=== PATIENT | male | born 1965 | race Caucasian/White ===

== ENCOUNTER 2017-02-25 12:58 | Inpatient (IN) ==
[2017-02-25] MEDS ORDERED: NS 1,000 ML IV ONE (16:49)
[2017-02-25 17:00] LABS: MANUAL DIFF NEEDED? NO
[2017-02-25] MEDS ORDERED: VANCOMYCIN IV PER PHARMACY MISC SCH (17:00)
[2017-02-25 17:03] LABS: BASO% 0.1 % (0.0-0.8); EOS# 0.03 X1000 (0.0-0.7); EOS% 0.2 % (0.0-10.0); HEMATOCRIT 37.4 % (42.0-52.0); HEMOGLOBIN 12.6 g/dL (14.0-18.0); IMM GRAN# 0.16 X1000 (0.0-0.04); IMM GRAN% 0.9 % (0.0-0.5); LYMPH# 1.34 X1000 (1.2-3.4); LYMPH% 7.2 % (20.5-51.1); MCHC 33.7 g/dL (33-37); MCV 80.1 FL (81-99); MONO# 1.25 X1000 (0.11-0.59); MONO% 6.7 % (1.7-9.3); MPV 9.1 FL (7.4-10.4); NEUT% 84.9 % (42.2-75.2); PLT 369 X1000 (130-400); RBC 4.67 XMIL (4.7-6.1)
[2017-02-25 17:11] LABS: INR 1.14; PROTIME 12.1 Seconds (9.2-11.7)
[2017-02-25 17:16] LABS: HEMOGLOBIN A1C 6.6 % (4.8-6.0)
[2017-02-25 17:27] LABS: AGAP 13; ALKALINE PHOSPHATASE 118 U/L (32-122); BUN 12 mg/dL (8-22); CALCIUM 9.2 mg/dL (8.8-10.2); CHLORIDE 90 mmol/L (98-107); COSMO 266; GOT 13 U/L (10-34); GPT 8 U/L (10-44); POTASSIUM 3.6 mmol/L (3.5-5.1); SODIUM 132 mmol/L (136-145); TCO2 29 mmol/L (25-35); TOTAL BILIRUBIN 0.65 mg/dL (0.20-1.00); TOTAL PROTEIN 6.3 g/dL (6.3-8.3)
[2017-02-25 17:28] LABS: HDL 38 mg/dL (35-55); LDL 76 mg/dL; TRIGLYCERIDES 105 mg/dL (39-160); VLDL 21 mg/dL
[2017-02-25 17:29] LABS: MAGNESIUM 1.5 mg/dL (1.5-2.7); PREALBUMIN 10.7 mg/dL (20-40)
[2017-02-25 17:39] LABS: FREE T4 1.7 ng/dL (0.93-1.70)
[2017-02-25] MEDS: ZOSYN 3.375 GM/NS 3.375 GM/50 ML IVPB IV SCH (19:59)
[2017-02-25] MEDS: HUMALOG SUBQ SCH (20:22)
[2017-02-25] MEDS ORDERED: MAG-OX PO ONE (20:47)
[2017-02-25] MEDS ORDERED: KLOR-CON PO ONE (20:47)
[2017-02-25] MEDS ORDERED: NS 250 ML IV ONE (20:48)
[2017-02-25] MEDS ORDERED: NS 1,000 ML IV SCH (20:48)
[2017-02-25 21:47] LABS: URINE MICRO REVIEW NEEDED? NO; URINE SOURCE CLEAN CATCH
[2017-02-25 21:50] LABS: BILIRUBIN URINE NEGATIVE (NEGATIVE); BLOOD URINE SMALL (NEGATIVE); COLOR YELLOW; GLUCOSE URINE NEGATIVE (NEGATIVE); LEUKOCYTES URINE TRACE (NEGATIVE); NITRITE URINE NEGATIVE (NEGATIVE); PH URINE 6.5; PROTEIN URINE NEGATIVE (NEGATIVE); SP GRAVITY URINE 1.008; TURBIDITY URINE CLEAR (CLEAR); UROBILINOGEN URINE NORMAL (NORMAL)
[2017-02-25 21:51] LABS: UR EPITHELIAL CELLS <10 /HPF (<10); URINE BACTERIA NEGATIVE /HPF; URINE WBC <10 /HPF (<10)
[2017-02-25] MEDS ORDERED: VANCOMYCIN 1,750 MG in NS 250 ML IV ONE (22:00)
[2017-02-26] MEDS: ZOSYN 3.375 GM/NS 3.375 GM/50 ML IVPB IV SCH ×5 (00:42→22:51)
--- NOTE | 2017-02-26 04:17 | HISTORY AND PHYSICAL ---
CHIEF COMPLAINT: Lower extremity pain and ulceration. HISTORY OF PRESENT ILLNESS: Mr. Bronson is a 52-year-old male with a history of diabetes mellitus and nicotine dependence, who presents from Dr. Valle's wound clinic with bilateral lower extremity ulcerations. The patient has been having lower extremity pain and edema as well as ulcerations over the past 3 weeks that have been getting progressively worse. He does report occasional fever and chills, and he reports yellowish drainage from his extremity wounds. His wounds cover the posterior portion of his left lower extremity and are almost circumferential around the right lower extremity from just below the knee to the ankle. There is no bone exposure but there is eschar tissue and quite a foul smell coming from his legs. He has no other real complaints. No abdominal pain, nausea or vomiting. No diarrhea. No constipation. He denies any chest pain. He reports occasional shortness of breath. He came into the hospital today for direct admission, and currently labs and diagnostics have been ordered. Initial set of vital signs showed that he had a heart rate of 100 with all other vital signs normal. Dr. Valle will perform lower extremity debridement in the morning. He has asked us to admit for medical management. PAST MEDICAL HISTORY: 1. Diabetes mellitus. 2. Nicotine dependence. PAST SURGICAL HISTORY: A tibial plateau on the left. SOCIAL HISTORY: Patient smokes a pack a day. He is . He has 2 children that are grown. 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 He denies drug or alcohol use. Apparently, he did have a history of alcohol dependence but has not had a drink since November of this year. REVIEW OF SYSTEMS: Fourteen-point review of systems obtained and found to be negative with the exception of the HPI. MEDICATIONS: Currently being compiled but the patient states he only takes, I believe, Januvia and metformin. ALLERGIES: No known drug allergies. PHYSICAL EXAMINATION: VITAL SIGNS: Blood pressure is 108/71, heart rate 100, respiratory 20, O2 saturation 96% on room air. Temperature is 97.6 degrees. GENERAL: This is a chronically ill-appearing 52-year-old male, lying in hospital bed in no acute distress. NEUROLOGIC: The patient is awake, alert, and oriented. He follows commands without focal deficits. HEENT: Head is atraumatic and normocephalic. Pupils are equal, round, reactive to light. Oral mucosa is moist. Trachea is midline. There is no JVD. No carotid bruits. CHEST: Clear to auscultation. Diminished at the bases. CV: Regular and tachy. S1-S2 is noted. No apparent murmurs. GI: Soft, nondistended, nontender. Bowel sounds positive. EXTREMITIES: Both lower extremities with fairly severe venous stasis ulcerations and eschar tissue as described in the HPI. Pulses are thready and diminished bilaterally. Both legs are cool to touch with trace edema. DIAGNOSTIC DATA: Pending. ASSESSMENT AND PLAN: 1. Lower extremity ulcerations: Presumed diabetic versus venous stasis. We will go ahead and obtain blood cultures and lactic acid given his tachycardia. Start vancomycin, and we will also start Zosyn once his renal function has been ascertained. Dr. Valle is going to perform debridement on his legs tomorrow. An echocardiogram has been ordered. We are also going to order chest x-ray and multiple lab data points. 2. Tachycardia: We will go ahead and resume the patient is at least early septic. We will start IV fluids. Check blood cultures and a lactic acid; check a chest x-ray and urinalysis as well. 3. Diabetes mellitus: We are going to check a hemoglobin A1c and start pattern sugars and sliding scale insulin. 4. The patient is going to need a thorough evaluation medically. We are going to check comprehensive labs including thyroid function, coagulation studies, iron studies, complete metabolic profile, CBC, comprehensive electrolytes, EKG, chest x-ray and others. Further recommendations will be made based on lab data. 5. Nicotine dependence: Patient has been advised to quit smoking. Nicotine patch has been prescribed and we will continue daily cessation education. 6. Further recommendations to follow. Dictated by JOSEE Carolina for Lydia Montoya MD cc: JOSEE Carolina MD
[2017-02-26 06:41] LABS: HEMATOCRIT 33.1 % (42.0-52.0); HEMOGLOBIN 10.7 g/dL (14.0-18.0); MCH 26.6 PG (27-31); MCHC 32.3 g/dL (33-37); MCV 82.1 FL (81-99); RBC 4.03 XMIL (4.7-6.1)
[2017-02-26 06:56] LABS: AGAP 12; BUN 12 mg/dL (8-22); CALCIUM 8.2 mg/dL (8.8-10.2); CHLORIDE 95 mmol/L (98-107); COSMO 270; POTASSIUM 3.9 mmol/L (3.5-5.1); SODIUM 134 mmol/L (136-145); TCO2 27 mmol/L (25-35)
[2017-02-26] MEDS: HUMALOG SUBQ SCH ×4 (06:59→20:15)
--- NOTE | 2017-02-26 08:01 | Diag Imaging Result Document ---
PROCEDURE NAME: CHEST-2 VIEWS - 02/25/2017 CHEST X-RAY, 2 VIEWS: COMPARISON: None. FINDINGS: There are trace pleural effusions. Heart size is borderline enlarged. Pulmonary vascularity is normal. No infiltrates or edema. IMPRESSION: Cardiomegaly. Trace pleural effusions.
--- NOTE | 2017-02-26 09:23 | EKG Report ---
Test Performed on : 02/25/2017 4:28:45 PM Test Reason : Pre-Op Blood Pressure : / mmHG Vent. Rate : 123 BPM Atrial Rate : 123 BPM P-R Int : 122 ms QRS Dur : 086 ms QT Int : 354 ms P-R-T Axes : 086 084 089 degrees QTc Int : 506 ms Sinus tachycardia. Left atrial enlargement Borderline ECG When compared with ECG of 25-FEB-2017 16:26, (Unconfirmed) No significant change was found Confirmed by Yaquelin AGUILERA, Lam Solorzano ([id number]) on 02/26/2017 6:35:58 PM
[2017-02-26] MEDS ORDERED: LANOXIN IV ONE (09:36)
[2017-02-26] MEDS: NICODERM PATCH TD SCH (10:06)
--- NOTE | 2017-02-26 10:26 | EKG Report ---
Test Performed on : 02/26/2017 10:11:06 AM Test Reason : afib Blood Pressure : / mmHG Vent. Rate : 125 BPM Atrial Rate : 125 BPM P-R Int : 120 ms QRS Dur : 084 ms QT Int : 358 ms P-R-T Axes : 072 061 066 degrees QTc Int : 516 ms Sinus tachycardia. Nonspecific T wave abnormality Abnormal ECG When compared with ECG of 26-FEB-2017 10:10, (Unconfirmed) No significant change was found Confirmed by Yaquelin AGUILERA, Lam Solorzano ([id number]) on 02/26/2017 6:42:49 PM
[2017-02-26] MEDS ORDERED: TORADOL IV ONE (12:09)
[2017-02-26] MEDS ORDERED: NS 1,000 ML IV SCH ×2 (12:11→15:17)
--- NOTE | 2017-02-26 14:43 | ECHO REPORT ---
ORDER DATE: 02/25/2017 MEASUREMENTS: 1. Left ventricular end-diastolic diameter 5.5. 2. End-systolic diameter 5.0. 3. Posterior wall thickness 1.1. 4. Septal thickness 1.1. 5. Left atrium 4.3. 6. Aortic root 3.1 SUMMARY: 1. Adequate quality study. 2. Mild sclerosis of trileaflet aortic valve demonstrated with normal aortic valve opening evident and peak gradient across aortic valve less than 5 mmHg. There is trace aortic regurgitation. Mild thickening of anterior and posterior mitral leaflets demonstrated. There is mild mitral regurgitation. Tricuspid and pulmonic valves are without structural abnormality with mild tricuspid regurgitation and mild pulmonic regurgitation. The estimated systolic PA pressure by Doppler is 50 mmHg. The aortic root is normal size. 3. Borderline left ventricular enlargement with mild concentric left hypertrophy is demonstrated. Estimated left ejection fraction is approximately 20 to 25% in the setting of global hypokinesis. Left atrium is mildly enlarged. Right atrium and right ventricle are normal size with preserved right ventricular systolic function. 4. No pericardial effusion. 5. Appearance of inferior vena cava suggests normal central venous pressure. CONCLUSIONS: 1. Aortic valve sclerosis without stenosis, with trace aortic regurgitation. 2. Mild mitral regurgitation. 3. Mild tricuspid regurgitation with moderate pulmonary hypertension by Doppler. 4. Mild left ventricular hypertrophy with estimated left ejection fraction 20-25%. 5. Mild left atrial enlargement. cc: MD Junior Villavicencio MD
--- NOTE | 2017-02-26 14:53 | PROGRESS NOTE ---
DATE: 02/26/2017 SUBJECTIVE: The patient was admitted to the hospital yesterday evening. He has undergone medical workup, cardiac, LEAs and labs. He does have a white count but no fevers overnight. His wound dressings are in place. No questions about surgery. We have had long discussions about this. He has been on antibiotics. Low-grade tachycardia noted 1 teens to 120s. Temperature is 99.4 degrees, blood pressure 119/75, oxygen saturation 94% on room air.General: He is alert and cachectic appearing gentleman. Cardiovascular: Sinus tach. Dressings are in place and they are clean in the bilateral lower extremities. There is obvious smell of necrotic wounds here. Abdomen: Is soft, nontender. He had LEAs performed that do show evidence although these could possibly be skewed by the circumferential nature of his wounds but he has a 0.5 on the right where the wounds were the most extensive although he does have DP and PT signals. LABS: White count is 18, hematocrit 33. Creatinine 0.8, glucose 159. Albumin was low at 10.7. Troponins are stable at 0.68 and EKG does not show any acute abnormalities. Urinalysis was negative for nitrates, with only trace leukocytes. Chest x-ray, clear. ASSESSMENT AND PLAN: This is a 52-year-old male with a long-standing greater for several months of full-thickness wounds of bilateral lower extremities of unclear etiology. He does have some peripheral vascular disease suspected. We have had long discussions requiring his future for surgical therapy. Today he needs excision of these wounds to facilitate wound healing and we will ultimately make decisions on what he needs for wound coverage, likely split-thickness skin grafts. We will also begin evaluation after surgery today of his peripheral vascular disease and see if there is any reversible lesions that we can intervene upon prior to his formal wound coverage. I have discussed that this would be a prolonged course of months getting these to heal with the goal of saving his leg but there is no guarantee here and I do worry that he will progress to require amputation at least of his right lower extremity. Wounds on the left are not as severe or do not cover as much tissue but there are just as deep and will likely require at least split thickness skin grafts here as well. We will continue to follow along with you and plan for surgery today for debridement. Appreciate the Medicine Service's help with managing of this complicated patient. cc: Junior Valle MD
--- NOTE | 2017-02-26 16:07 | PROGRESS NOTE ---
DATE: 02/26/2017 SUBJECTIVE: The patient is resting in bed. He is scheduled to undergo surgery today. OBJECTIVE: Vital Signs: Temperature 99 degrees, blood pressure 119/75, heart rate 127, respirations 14, O2 saturation is 94% on room air. General: This is an elderly male, lying in bed, in no acute distress. Head: Normocephalic, atraumatic. Heart: S1, S2. Normal. Tachycardic. Lungs: Clear to auscultation bilaterally. Abdomen: Positive bowel sounds. Soft, nontender, nondistended. Extremities: Bilateral necrotic leg ulcerations. Neurologic: The patient is alert and oriented x3. LABS: White blood cell count 18, hemoglobin 10, hematocrit 33, platelets 280, 000. Sodium 134, potassium 3.4, chloride 95, CO2 27, BUN 12, creatinine 0.8, glucose 133, calcium 8.2. ASSESSMENT AND PLAN: 1. Bilateral lower extremity necrotic skin ulcerations. The patient is scheduled to undergo debridement today. We will continue on broad-spectrum antibiotic coverage. 2. Sinus tachycardia. Most likely secondary to the patient's lower extremity skin infection. Will continue with antibiotic therapy and IV fluids. 3. Cardiomyopathy. The patient has an ejection fraction of 20 to 25%. We will monitor the patient's intake and output closely. cc: Lydia Montoya MD MTDD
[2017-02-26] MEDS ORDERED: FENTANYL ONE (17:01)
[2017-02-26] MEDS ORDERED: DIPRIVAN 1% ONE (17:01)
[2017-02-26] MEDS ORDERED: ANESTHESIA PB SET 88 IN 5742 ONE (17:06)
[2017-02-26] MEDS ORDERED: XYLOCAINE-MPF 2% ONE (17:06)
[2017-02-26] MEDS ORDERED: ZOFRAN ONE (17:06)
[2017-02-26] MEDS ORDERED: LR 2,000 ML ONE (17:06)
[2017-02-26] MEDS ORDERED: LR 1,000 ML ONE (17:23)
[2017-02-26] MEDS: LR 1,000 ML IV SCH (18:44)
[2017-02-26] MEDS: DILAUDID IV PRN ×3 (18:45→22:51)
--- NOTE | 2017-02-26 19:42 | OPERATIVE NOTE ---
PROCEDURE DATE: 02/26/2017 PREOPERATIVE DIAGNOSES: 1. Bilateral lower extremity wounds, postoperative. 2. Bilateral lower extremity necrotic wounds down to the level of periosteum and including muscle and fascia. PROCEDURE PERFORMED: 1. Excisional debridement of right lower extremity wound. Total dimensions 38 x 30 cm down to the level and including periosteum of the tibia, including muscle and fascia. 2. Excisional debridement of left posterior calf wound, 23 x 13 cm down to and including muscle fascia. 3. Excisional debridement of left lateral ankle wound 5 x 4 cm down to the level of tendon. 4. Debridement of left dorsal foot wound 5 x 2 cm to the level of subcutaneous tissue. ESTIMATED BLOOD LOSS: 250 mL. SPECIMENS: 1. Necrotic tissue from bilateral lower extremity wounds for permanent section. 2. Right anterior tibialis muscle for tissue culture. INDICATIONS: A 52-year-old man who presented to my wound care clinic on Thursday with a greater than 6 month history of bilateral lower extremity wounds. He been treated with Neosporin for last several months with no real improvement. He is cachectic appearing and malnourished. He is a smoker and a diabetic. Friends were concerned over the last several weeks of the odor coming from the wounds prompting his presentation to [facility]. I recommended admission that night; however, the patient refused against medical advice stating that he had things to deal with and would need to be admitted the following day. As such, we arranged for this, a direct admission and he underwent medical workup. He was slightly tachycardic, but stable and his wounds appeared dry and very chronic appearing with dry eschar overlying. Medical workup was appropriate for debridement. We had a long discussion regarding the need for multiple future surgeries and likely split thickness skin graft and the strong possibility of quoted 50% chance of losing his right lower extremity, if not both lower extremities. OPERATIVE FINDINGS: There were large bilateral lower extremity ulcers with necrotic tissue with above dimensions. This extended in the right foot down to the level of the tendons of the foot, the periosteum of the tibia with necrosis of both the anterior tibialis and gastrocnemius muscles. There was purulence here as well. On the left side, there was a posterior-oriented ulcer that extended down to the muscle of the gastrocnemius. But this was viable at this level. There was a smaller, more lateral ankle ulcer that was more superficial and a dorsal foot ulcer that again was superficial. OPERATIVE NOTE: Risks, benefits, alternatives discussed with the patient and this included multiple operations, possibility of amputation in the future and the likelihood of skin grafts and the prolonged nature wound healing that is likely anticipated. He understood and consented. He was seen in preoperative area and bilateral lower extremities were marked he was receiving scheduled antibiotics, Vancomycin and Zosyn started yesterday. General anesthesia was induced without complication. Bilateral lower extremities prepped with Betadine and draped in usual fashion. Time-out was performed between Nursing, Surgical, Anesthesia Staff. All agreed. Using combination electrocautery and scalpel we excised the necrotic tissue of the right lower extremity down to the level of muscle fascia. In many places, the fascia was necrotic and this was excised. There were multiple muscle bellies and tendons that required resection due to necrosis and pus and this included the majority of the gastrocnemius muscle, almost the entirety of the anterior tibialis and some the other foot and flexors and extensors. There were also some tendons of the dorsal foot that were involved as well. We were able excised all the necrotic tissue back to healthy bleeding emerson muscle of the lower extremity, and there is no evidence of undrained collection extending up the leg. We then turned attention to the left lower extremity. Hemostasis was obtained and we wrapped the leg in moist laps. We then turned our attention to the left posterior calf. We excised a large ulcer here as well. This extended down to the muscle fascia. There were some focal areas of fascial involvement that was excised, but overall, the muscle was viable and contracted, did not require debridement of muscle here. Hemostasis was obtained. The left lateral ankle ulcer was excised sharply. This extended down to the tendons of the lateral ankle, and then the dorsal foot wound was excised down to subcutaneous tissue. Hemostasis was noted. Again, felt to have adequate control of all necrotic infected tissue. Vashe Kerlix and a loose AMY wraps were applied. He was transferred back to ICU for concerns of impending sepsis. We debated leaving the patient intubated; however, he has no family with him to discuss future surgical options and given that he will now require a guillotine amputation of his right lower extremity, felt important that we have this conversation with him so that he understands and consent. I feel that this is safe to do. We will monitor him in ICU. If he has worsening acidosis or sepsis, he may require intubation, but as of now, he was stable through the case, not requiring any vasopressors and is felt safe that we will extubate him. He has no family here today. We will discuss his grave condition with him when appropriate and will plan for disarticulation of the right lower extremity in guillotine fashion tomorrow with ultimate formalization to above knee amputation on the right. I suspect the left lower extremity will respond to wound VAC placement, if not skin grafts in the future, in the meantime, we will continue on antibiotics and local wound dressing changes. cc: Junior Valle MD
[2017-02-26] MEDS: VANCOMYCIN 1,450 MG in NS 250 ML IV SCH (20:50)
[2017-02-27] MEDS: DILAUDID IV PRN ×8 (02:43→23:24)
[2017-02-27] MEDS: LR 1,000 ML IV SCH ×3 (02:44→23:24)
[2017-02-27] MEDS: ZOSYN 3.375 GM/NS 3.375 GM/50 ML IVPB IV SCH ×4 (05:24→23:23)
[2017-02-27 05:51] LABS: HEMATOCRIT 35.7 % (42.0-52.0); HEMOGLOBIN 11.7 g/dL (14.0-18.0); MCH 27.1 PG (27-31); MCHC 32.8 g/dL (33-37); MCV 82.6 FL (81-99); MPV 9.5 FL (7.4-10.4); RBC 4.32 XMIL (4.7-6.1)
[2017-02-27 06:22] LABS: AGAP 19; BUN 18 mg/dL (8-22); CALCIUM 8.9 mg/dL (8.8-10.2); CHLORIDE 95 mmol/L (98-107); COSMO 266; POTASSIUM 4.7 mmol/L (3.5-5.1); SODIUM 132 mmol/L (136-145); TCO2 18 mmol/L (25-35)
[2017-02-27] MEDS: HUMALOG SUBQ SCH ×4 (06:39→20:42)
--- NOTE | 2017-02-27 08:47 | PROGRESS NOTE ---
DATE: 02/27/2017 SUBJECTIVE: He says his leg feels better this morning. No issues overnight. He says he is hungry. OBJECTIVE: Vital Signs: No fevers. Pulse has been consistently in the 120s, blood pressure 123/73 at midnight, it was 95/75 this morning, oxygen saturation 100% on room air. General: He is alert and oriented x3. Cardiovascular: Sinus tachycardia. Pulmonary: No increased work of breathing. Abdomen: Soft, nontender. Extremities: Dressings on bilateral lower extremities are in place and clean. The right toes are perfused and viable. Neurologically intact. He does have some limitation to dorsiflexion in the right foot but can plantar flex partially the left foot. Otherwise his knee flexion-extension is normal. The left leg seems to move normally. There is no cellulitis or purulence extending up to above the knee bilaterally. LABORATORY DATA: White counts up to 30,hematocrit 35 platelets 312,000. Creatinine 0.9. Glucose is 93, sodium is 132, potassium 4.7, his pre-albumin was 11 yesterday. ASSESSMENT/PLAN: This is a 52-year-old male with necrotic wounds of his bilateral lower extremities with significant purulence and necrosis of muscle tendon extending down to the level of bone in the right leg. Left leg wounds are quite extensive also but without the extent of necrosis extending into the soft tissue structures, muscle, etc. I discussed with the patient this morning that I recommended a above-knee amputation on the right given his likelihood of dysfunction of the lower limb and for definitive source control and then to facilitate wound healing. He is adamantly against this and does not want to pursue amputation at this time. Discussed risks of worsening of infection. I discussed the strong likelihood that he will have an inadequate level of function in his right leg with significant disability as far as foot drop on that right given the involvement of his anterior tibialis and other flexors and extensor muscles of the calf. Also discussed that I think the likelihood of skin graft healing in the right lower extremity with his peripheral vascular disease and exposed bone and tendon is low. He understands all this and understands that amputation is likely in the future but he does not feel mentally prepared to undergo this today. I think from a clinical standpoint he has good source control of his infection. We will change dressings at the bedside today and decide need for further debridement. In meantime, we will continue wash dressing, broad-spectrum antibiotics. Tissue cultures are pending from the time of surgery. I think that he will most benefit from a guillotine amputation through the knee on the right with formal above knee amputation later next week after antibiotics and wound VAC to the left lower extremity with possible skin grafting in the future. I have discussed this with him and he understands that this is the likely outcome but does not wish to undertake this at this time. We will keep him in ICU for observation and wound care and will follow him closely. I will engage Aimee our wound nurse to be at the bedside for dressing changes later today. cc: Junior Valle MD MTDD
[2017-02-27] MEDS: NICODERM PATCH TD SCH (09:33)
--- NOTE | 2017-02-27 11:33 | VASCULAR LAB ---
PROCEDURE NAME: Arterial Bilateral Legs - 02/25/2017 PROCEDURE: Lower extremity arterial study. DATE OF STUDY: 02/25/2017. REQUESTING PHYSICIAN: Dr. Calvin Valle. RIVETER HELPER: Lani. INDICATION: Ulcers. FINDINGS: Segmental pressures are as follows: Right brachial 92 and left 103; right proximal thigh 121 and left 131; right distal thigh 120 left and 131 right; popliteal 79 left and 106 right; dorsalis pedis 68 right and left 93; right posterior tibial 61 and left 105; right toe 56 land eft 34; right MOSES 0.66 and left 1.02; right TBI 0.54 and left 0.33. Waveform analysis: Waveforms appear to be intact, but started to be diminished significantly at the level of the right ankle. So, essentially no flow noted to the right toe. The left side essentially has pulsatile flow to the left and all the way to the toe. INTERPRETATION: Likely distal peripheral vascular disease on the right side originating probably at the level of the popliteal distally. I suspect that on the patient's TBI one the right side is falsely elevated since there is essentially no waveform noted at the level of the toe. This suggest significant peripheral vascular disease. Given this, the patient's ulcer, vascular intervention may assist with healing. I suspect there is probably insufficient flow to allow full healing of this wound by this study. cc: MD Junior Mera MD [facility]OSPITALMaci
--- NOTE | 2017-02-27 12:53 | PROGRESS NOTE ---
DATE: 02/27/2017 SUBJECTIVE: The patient is resting comfortably in bed. He states that amputation was recommended for his lower extremity; however, he states that he has not made up his mind yet regarding that. The wound culture is growing Gram-positive cocci. OBJECTIVE: Vital Signs: Temperature 98.7 degrees, blood pressure 137/69, heart rate 127, respirations 17, O2 saturation 100% on room air. General: This is an elderly male, lying in bed in no acute distress. HEENT: Head normocephalic, atraumatic. Heart: S1 and S2 normal. Tachycardic. Lungs: Clear to auscultation bilaterally. No wheezes. No rales. No rhonchi. Abdomen: Positive bowel sounds. Soft, nontender, nondistended. Extremities: The patient's lower extremities are wrapped in a clean, dry dressing. Neurologic: The patient is alert and oriented x3. LABORATORIES: White blood cell count 30, hemoglobin 11, hematocrit 35, platelets 312,000. Sodium 132, potassium 4.7, chloride 95, CO2 of 18, BUN 18, creatinine 0.9, glucose 93, magnesium 1.7. ASSESSMENT AND PLAN: 1. Bilateral lower extremity necrotic skin ulcerations with MRSA. The patient is already on vancomycin. We will consult Dr. Schmidt for further antibiotic recommendations. Further management as per the general surgeon. 2. Sinus tachycardia. We will continue to monitor the patient on telemetry, and keep the patient well hydrated and on antibiotic therapy. 3. Hyponatremia. Will continue to monitor the patient's sodium level closely. 4. Gastrointestinal prophylaxis. Will start the patient on Protonix. 5. Tobacco dependence. Will continue on the NicoDerm patch. cc: Lydia Montoya MD [facility]
--- NOTE | 2017-02-27 15:48 | CONSULTATION ---
DATE OF CONSULTATION: 02/27/2017 CONCLUSION: The patient has a severe bilateral leg infection which extends in the right leg to the bone. He has undergone excisional debridement of both legs performed by Dr. Valle. The Gram stain from the material showed gram-positive cocci. The patient's white count has increased to approximately 33,000. I think that he is getting appropriate surgery and antibiotics for his illness and the white count initially is higher because of the infection and the surgery, but with time I think it will come down pending final culture results. RECOMMENDATIONS: As mentioned above. I think the patient is on appropriate antibiotics and he has had appropriate surgical debridement of his legs. For now I would continue the current antibiotics pending culture results. DISCUSSION: The patient tells me that for the past 5 months he has had sores and wounds on his legs that have not been getting better. He initially had leg edema and then the infection developed. He got to the point that he could not walk on his legs. His lab studies show a CBC with a white count that increased today to 30,330, hemoglobin 11.7, platelet count 312,000, creatinine is 0.9, GFR is greater than 60. The patient's blood cultures thus far are negative. Culture from the patient's left leg shows gram-positive cocci. PAST MEDICAL HISTORY/REVIEW OF SYSTEMS: Eyes and Ears: He states he hears and sees okay. Neck: No stiffness. Respiratory: No cough or shortness of breath. Cardiac: No chest pain or palpitations. Gastrointestinal: No nausea or vomiting. The patient said he has not passed a stool in the past 2 days. Genitourinary: The patient denies dysuria or hematuria. Bones, joints, muscles: See present illness. Neurologic: The patient does not have any seizures he has generalized weakness. He does not have any sensory loss in his legs. The remainder of the patient's review of systems was completed and was negative. PREVIOUS HOSPITALIZATIONS AND OPERATIONS: Patient had a fracture of his left leg which required surgery. MEDICAL DISEASES: Positive for diabetes mellitus, COPD secondary to cigarette smoking and peripheral artery disease. INFECTIOUS DISEASE HISTORY: Positive for pneumonia. FAMILY HISTORY: Positive for diabetes mellitus. SOCIAL HISTORY[place] He lives alone. He smokes cigarettes. He stopped drinking alcohol in November of this year. He does not abuse drugs. He is retired from working at . PHYSICAL EXAMINATION: Vital Signs: Temperature is 98.7 degrees, pulse 129, respirations 17, blood pressure 137/69. General: This is a chronically ill and malnourished appearing, middle- aged male. He is in no acute distress at this time. Head, eyes, ears, nose, Throat: He can hear my spoken words and see near objects. No drainage noted from the nose or ears. Neck: No meningismus. Thorax: Increased AP diameter of the chest. Lungs: Clear to auscultation. Cardiovascular: Heart rate is regular. Abdomen: Soft without masses or tenderness. Extremities: Both legs have large dressings around them. The dressings are intact. Neurologic: Patient is awake. He can move his extremities but he is weak. There is no tremor. His sensation was intact to touch. His memory as regarding his medical history seemed to be intact. Thank you for the consultation. cc: Johnnie Schmidt MD
[2017-02-27] MEDS: VANCOMYCIN 1,450 MG in NS 250 ML IV SCH (15:54)
[2017-02-28] MEDS: DILAUDID IV PRN ×9 (02:31→22:11)
[2017-02-28] MEDS: ZOSYN 3.375 GM/NS 3.375 GM/50 ML IVPB IV SCH ×4 (05:00→23:31)
[2017-02-28 06:18] LABS: HEMATOCRIT 31.6 % (42.0-52.0); HEMOGLOBIN 10.4 g/dL (14.0-18.0); MCH 26.7 PG (27-31); MCHC 32.9 g/dL (33-37); MPV 9.6 FL (7.4-10.4); RBC 3.9 XMIL (4.7-6.1)
[2017-02-28] MEDS: HUMALOG SUBQ SCH ×4 (06:33→21:43)
[2017-02-28] MEDS ORDERED: MAGNESIUM SULFATE 2 GM/S.W.I. 2 GM/50 ML IVPB IV ONE (06:39)
[2017-02-28 06:42] LABS: AGAP 17; BUN 27 mg/dL (8-22); CALCIUM 8.3 mg/dL (8.8-10.2); CHLORIDE 91 mmol/L (98-107); COSMO 264; POTASSIUM 4.7 mmol/L (3.5-5.1); SODIUM 129 mmol/L (136-145); TCO2 21 mmol/L (25-35)
[2017-02-28] MEDS ORDERED: SAMSCA PO ONE (06:49)
[2017-02-28] MEDS: NICODERM PATCH TD SCH (08:38)
--- NOTE | 2017-02-28 08:46 | Diag Imaging Result Document ---
PROCEDURE NAME: CHEST-PORTABLE - 02/28/2017 PORTABLE CHEST: COMPARISON: 02/25/2017. FINDINGS: Interval development of infiltrates in the mid and lower right lung. I believe there are small pleural effusions as well. Heart is mildly prominent. The upper lungs are clear. IMPRESSION: Overall worsening with development of dense infiltrates in the mid and lower right lung.
[2017-02-28] MEDS: LASIX IV SCH ×2 (09:20→21:43)
[2017-02-28] MEDS: VANCOMYCIN 1,450 MG in NS 250 ML IV SCH (10:17)
[2017-02-28] MEDS: LOVENOX SUBQ SCH (13:07)
--- NOTE | 2017-02-28 13:07 | PROGRESS NOTE ---
DATE: 02/28/2017 SUBJECTIVE: The patient is resting comfortably in bed. He states that he has not had a bowel movement yet. He does have a slight cough this morning. OBJECTIVE: Vital Signs: Temperature 97.8 degrees, blood pressure 128/90, heart rate 122, respirations 22, O2 saturations 90% on room air. General: This is an elderly male, lying in bed, in no acute distress. Head: Normocephalic atraumatic. Heart: S1, S2. Normal. Regular rate and rhythm. Lungs: Clear to auscultation bilaterally. No wheezing. No rales. No rhonchi. Abdomen: Positive bowel sounds. Soft, nontender, nondistended. Extremities: No edema. No cyanosis. No calf tenderness. Neurologic: The patient is alert and oriented x3. No focal neurologic deficits noted. LABS: White blood cell count 19, hemoglobin 10, hematocrit 31, platelets 403,000. Sodium 129, potassium 4.7, chloride 91, CO2 21. BUN 27, creatinine 1.1, glucose 156. Magnesium 1.7. ProBNP 77815. Chest x-ray shows dense infiltrates in the mid and lower right lung with small bilateral pleural effusions. ASSESSMENT AND PLAN: 1. Pulmonary infiltrates. The patient appears to be volume overloaded. We will start the patient on Lasix. We will also continue with broad-spectrum antibiotic coverage. We will monitor the patient's I's and O's closely. The patient's IV fluid has been discontinued. 2. Bilateral lower extremity skin ulcerations with MRSA infection. Continue on vancomycin. Dr. Schmidt is following. 3. Cardiomyopathy. We will continue to monitor the patient's intake and output closely. The patient will most likely need a cardiac evaluation to further assess the etiology of his cardiomyopathy. 4. Tobacco dependence. Continue on the NicoDerm patch. 5. Diabetes mellitus type 2. Continue on sliding scale insulin. 6. Deep vein thrombosis prophylaxis. Will start the patient on Lovenox. cc: Lydia Montoya MD
[2017-02-28] MEDS: MIRALAX PO SCH (21:43)
[2017-02-28] MEDS: DULCOLAX PR SCH (21:43)
[2017-02-28] MEDS: COLACE PO SCH (21:43)
[2017-03-01] MEDS: DILAUDID IV PRN ×11 (00:08→22:41)
[2017-03-01] MEDS: VANCOMYCIN 1,450 MG in NS 250 ML IV SCH ×2 (03:50→22:42)
[2017-03-01 05:29] LABS: MANUAL DIFF NEEDED? NO
[2017-03-01 05:34] LABS: BASO% 0.4 % (0.0-0.8); EOS# 0.03 X1000 (0.0-0.7); EOS% 0.2 % (0.0-10.0); HEMOGLOBIN 11.7 g/dL (14.0-18.0); IMM GRAN# 0.23 X1000 (0.0-0.04); IMM GRAN% 1.3 % (0.0-0.5); LYMPH# 1.59 X1000 (1.2-3.4); LYMPH% 9.1 % (20.5-51.1); MCH 26.9 PG (27-31); MCHC 33.4 g/dL (33-37); MCV 80.5 FL (81-99); MONO# 1.49 X1000 (0.11-0.59); MONO% 8.5 % (1.7-9.3); MPV 9.1 FL (7.4-10.4); NEUT% 80.5 % (42.2-75.2); PLT 451 X1000 (130-400); RBC 4.35 XMIL (4.7-6.1)
[2017-03-01] MEDS: ZOSYN 3.375 GM/NS 3.375 GM/50 ML IVPB IV SCH ×3 (05:49→16:29)
[2017-03-01] MEDS: HUMALOG SUBQ SCH ×4 (06:02→23:26)
[2017-03-01 06:09] LABS: AGAP 16; BUN 24 mg/dL (8-22); CALCIUM 8.2 mg/dL (8.8-10.2); CHLORIDE 89 mmol/L (98-107); COSMO 264; POTASSIUM 3.2 mmol/L (3.5-5.1); SODIUM 130 mmol/L (136-145); TCO2 25 mmol/L (25-35)
[2017-03-01] MEDS ORDERED: MAGNESIUM SULFATE 2 GM/S.W.I. 2 GM/50 ML IVPB IV ONE (07:12)
[2017-03-01] MEDS ORDERED: KLOR-CON PO ONE (07:12)
[2017-03-01] MEDS: MIRALAX PO SCH ×2 (08:26→23:22)
[2017-03-01] MEDS: LASIX PO SCH (08:26)
[2017-03-01] MEDS: COLACE PO SCH ×2 (08:26→23:22)
[2017-03-01] MEDS: NICODERM PATCH TD SCH (08:27)
[2017-03-01] MEDS: LOVENOX SUBQ SCH (12:19)
--- NOTE | 2017-03-01 14:22 | PROGRESS NOTE ---
DATE: 03/01/2017 SUBJECTIVE: The patient has no complaints. He states that he did have a bowel movement. No acute events noted overnight. OBJECTIVE: Vital Signs: Temperature 97 degrees, blood pressure 138/85, heart rate 113, respirations 25, O2 saturation 98% on room air. General: This is an elderly male lying in bed in no acute distress. Head: Normocephalic, atraumatic. Heart: S1, S2. Normal. Tachycardic. Lungs: Clear to auscultation bilaterally. No wheezes, no rales. No rhonchi. Abdomen: Positive bowel sounds. Soft, nontender, nondistended. Extremities: No edema. No cyanosis. The patient has clean dry dressings applied to both lower extremities. LABS: White blood cell count 17, hemoglobin 11, hematocrit 35, platelets 451,000. Sodium 130, potassium 3.2, chloride 89, CO2 25, BUN 24, creatinine 0.9, glucose 63, magnesium 1.8. ASSESSMENT AND PLAN: 1. Pulmonary infiltrates. Will switch the patient to oral Lasix. Will repeat a chest x-ray tomorrow. The patient has diuresed quite well over the last 24 hours. 2. Bilateral lower extremity skin ulcerations with methicillin-resistant Staphylococcus aureus infection. Continue on vancomycin. 3. Cardiomyopathy. Aware. The patient will need to have a cardiac workup once the infection has cleared from his lower extremities. 4. Tobacco dependence. Continue on the NicoDerm patch. 5. Diabetes mellitus type 2. Continue on sliding scale insulin. 6. Deep vein thrombosis prophylaxis. Continue on Lovenox. 7. The patient is stable for transfer to the medical floor. cc: Lydia Montoya MD
[2017-03-01] MEDS: DULCOLAX PR SCH (23:22)
[2017-03-02] MEDS: ZOSYN 3.375 GM/NS 3.375 GM/50 ML IVPB IV SCH ×4 (00:22→18:03)
[2017-03-02] MEDS: DILAUDID IV PRN ×10 (01:23→22:58)
[2017-03-02 06:38] LABS: MANUAL DIFF NEEDED? NO
[2017-03-02] MEDS: HUMALOG SUBQ SCH ×4 (06:45→20:41)
[2017-03-02 07:14] LABS: BASO% 0.2 % (0.0-0.8); EOS# 0.08 X1000 (0.0-0.7); EOS% 0.5 % (0.0-10.0); HEMATOCRIT 32.4 % (42.0-52.0); HEMOGLOBIN 10.7 g/dL (14.0-18.0); IMM GRAN% 0.6 % (0.0-0.5); LYMPH# 2.01 X1000 (1.2-3.4); LYMPH% 12.3 % (20.5-51.1); MCV 81.6 FL (81-99); MPV 9.1 FL (7.4-10.4); NEUT% 75.4 % (42.2-75.2); PLT 435 X1000 (130-400); RBC 3.97 XMIL (4.7-6.1)
[2017-03-02 07:36] LABS: AGAP 17; BUN 16 mg/dL (8-22); CALCIUM 7.7 mg/dL (8.8-10.2); CHLORIDE 92 mmol/L (98-107); COSMO 266; MAGNESIUM 1.7 mg/dL (1.5-2.7); POTASSIUM 3.9 mmol/L (3.5-5.1); SODIUM 132 mmol/L (136-145); TCO2 23 mmol/L (25-35)
[2017-03-02] MEDS: MIRALAX PO SCH ×2 (08:10→20:41)
[2017-03-02] MEDS: COLACE PO SCH ×2 (08:10→20:41)
[2017-03-02] MEDS: LASIX PO SCH (08:10)
[2017-03-02] MEDS: NICODERM PATCH TD SCH (08:10)
--- NOTE | 2017-03-02 08:41 | Diag Imaging Result Document ---
PROCEDURE NAME: CHEST-PORTABLE - 03/02/2017 AP PORTABLE CHEST, 03/02/2017 AT 0500 HOURS: FINDINGS: There is cardiomegaly. There are pleural effusions bilaterally. There is a somewhat ovoid lucency present over the mid right perihilar region. This is more conspicuous than on previous studies and may represent a cavity. This was not evident on the previous 2-view chest of 02/25/2017. There is increasing alveolar opacity in the perihilar region and lower lobe on the right over the last 2 examinations. IMPRESSION: Increasing pulmonary edema and/or pneumonia particularly in the right lower lobe with possible cavity formation.
--- NOTE | 2017-03-02 11:47 | PROGRESS NOTE ---
DATE: 03/02/2017 SUBJECTIVE: Patient reports to be in severe pain after the surgeon removed the dressing from both legs. She reports pain 10/10 in both lower extremities. Denies any fever or chills. OBJECTIVE: Vital Signs: Temperature 98.1 degrees, heart rate 116, respiratory rate 18, blood pressure 127/75, O2 saturation 100% on room air. General Examination: This is a chronically ill- looking and frail, 52-year-old male, lying in bed, in no acute distress. HEENT: Head is normocephalic, atraumatic. Anicteric sclerae and pale conjunctivae. Mucous membranes moist. Neck: Supple. No JVD. No carotid bruits. No lymphadenopathy. No thyromegaly. Cardiovascular: S1, S2 heard. Tachycardic. No murmurs, gallops, or rubs. Lungs: Clear bilaterally to auscultation. No work of breathing or using accessory muscles. Abdomen: Soft, nontender to palpation. Bowel sounds present. No organomegaly. Extremities: Covered by dressing. No edema or cyanosis noted. Neurologic: Patient is alert and oriented x3. Able to move 4 extremities. Cranial nerves 2-12 grossly normal. LABORATORY DATA: White cell count 16.37, hemoglobin 10.7, hematocrit 32.4, platelets 435,000. BMP unremarkable except mild hyponatremia 132, and glucose 100. ASSESSMENT/PLAN: 1. Pulmonary edema. The patient is on Lasix 40 mg p.o. daily and the x-ray from today showed increasing pulmonary edema in the right lower lobe with possible cavity formation so at this time to have better visualization of the lung anatomy, we are going to do a CT of the chest without contrast. We will see what that exam shows. In the meantime, we will increase the dose of Lasix to 40 mg IV b.i.d. but it is important to remark that this patient is on room air. 2. Bilateral lower extremity skin ulcerations with marked infection. Patient is on vancomycin. Dr. Schmidt from Infectious Disease is following this patient. We will continue with the same management and also General surgery has been involved in his care. 3. Cardiomyopathy stable. We will get an appointment for him as an outpatient for evaluation of this condition. 4. Tobacco dependence. Patient is on nicotine and NicoDerm patch. 5. Diabetes mellitus type 2. We will continue with sliding scale and glucose is under control. 6. Deep vein thrombosis prophylaxis on Lovenox. cc: Alverto Elias MD
[2017-03-02] MEDS: NORCO-10 PO SCH ×3 (13:51→21:29)
[2017-03-02] MEDS: LOVENOX SUBQ SCH (13:51)
--- NOTE | 2017-03-02 14:18 | PROGRESS NOTE ---
DATE: 03/02/2017 SUBJECTIVE: Some pain in his leg, but otherwise no complaints. OBJECTIVE: Vitals: Temperature is 98.1, pulse 116, blood pressure 120/75, oxygen saturation 100% on room air. General: He is a chronically ill-appearing gentleman, cachectic. Cardiovascular: Some sinus tach. Abdomen: Soft, nontender, nondistended. Extremities: Left posterior calf wound is clean. There is no necrosis here. Lateral left ankle and dorsal foot wound were also clean. There is no necrotic tissue or cellulitis here. The foot is well perfused and neurologically intact. The right calf wound is extensive, but no purulence and the surrounding cellulitis improved. There is some minimal areas of necrotic-appearing tissue, but this is very minimal. He neurologically on the right foot does not have any plantar dorsiflexion of this foot. The toes well perfused and his digits are intact, but does not have good control of his foot at this point. LABS: I reviewed his labs. White count down to 16, hematocrit 32, creatinine 0.8, glucose is 111. ASSESSMENT: A 52-year-old male with long-standing wounds to bilateral legs. He has got evidence of cardiomyopathy and heart failure on his echo. He has got Staph and Proteus growing out of his wounds. The wounds are clean. He does not have adequate function of this foot given the extensive debridement. I have discussed that with the patient. He has a large wound that will take a long time to heal if it ever does. He has evidence of peripheral vascular disease with diminished MOSES and a stepoff at the level of the knee below suggesting popliteal or tibial disease. Although his flow to the knee is relatively maintained and the left is normal. PLAN: I have had long discussion with the patient. Again, I have recommended to facilitate wound healing and his recovery, and to prevent other issues in the future, an above knee amputation on the right, given the extensive nature and anticipated lack of normal function in the right foot. He is adamant against this and wants to pursue only local measures at this time. We will continue this with dressing changes daily and plan to transition to wound VAC change. I will continue to recommend amputation of his lower extremity with an above knee amputation, but suspect that his stance will remain unchanged. No need for further debridement at this time, but will continue to monitor. I will ask Aimee, our wound nurse to weight in going forward. I do suspect that he has some distal lesions possibly related to the acute infection. We will get a CT angiogram to confirm that there is not a more proximal reversible lesion to facilitate his wound healing, and I do anticipate he is going to need skin graft coverage at the minimum in the future. We will continue to follow along. He is on appropriate antibiotics. Dr. Schmidt is following. I appreciate the hospitalist service recommendations on this chronically-ill gentleman. cc: MD MOHSEN Curtis
--- NOTE | 2017-03-02 15:03 | Diag Imaging Result Document ---
PROCEDURE NAME: CT THORAX W/O CONTRAST - 03/02/2017 COMPARISON: Chest x-ray earlier. A CT dose reduction protocol was used. FINDINGS: Stable cardiomegaly. There is severe, advanced triple-vessel calcified coronary artery disease. Anemia is present. There are moderately large pleural effusions and passive atelectasis of the lung bases. Otherwise, no infiltrates in the lungs. Bony structures are intact. IMPRESSION: 1. Cardiomegaly. 2. Bilateral pleural effusions. 3. Severe coronary artery disease. [facility]
--- NOTE | 2017-03-02 15:11 | Diag Imaging Result Document ---
PROCEDURE NAME: ANGIOGRAM/AORTA W/RUNOFF - 03/02/2017 CT ANGIOGRAM RUNOFF WITH INTRAVENOUS CONTRAST: A CT dose reduction protocol was used. COMPARISON: None. FINDINGS: Axial CT images of the abdomen, pelvis and both lower extremities were obtained after administering intravenous contrast. Coronal MIP images were generated. There is moderate vascular disease of the abdominal aorta with some multifocal plaque, some ulcerated, and vascular calcification. No aneurysm. There is [id number] stenosis at the origin of the right renal artery by about 40%. Origins of the other mesenteric arteries and left renal artery are patent. On the right side, there is some disease throughout the internal iliac artery system. The external iliac artery is patent. There is moderate stenosis with significant soft plaque buildup in the common femoral artery, with about 50% stenosis. The deep femoral artery is patent. There is severe stenosis at the origin of the superficial femoral artery with about 75 % narrowing. The popliteal artery is moderately diseased, with about 50% stenosis centrally. The anterior tibial artery is occluded. The peroneal and posterior tibial arteries are patent. There is significant tissue loss with ulceration exposing the mid-distal tibia anteriorly, as well as some of the fibula. On the left side, there is mild stenosis of the common iliac artery with about 25% narrowing. There is critical stenosis at the origin of the internal iliac artery of over 90 % narrowing, and the inferior division is also nearly occluded. The external iliac artery is patent. The common, superficial and deep femoral arteries are grossly patent. The popliteal artery is moderately diseased with several areas of narrowing by about 50%. The anterior tibial artery is occluded. The posterior tibial artery is the only artery that runs off completely to the foot. IMPRESSION: 1. Rather severe vascular disease bilaterally, left greater than right. 2. Extensive tissue loss of the right lower extremity, with exposed bone of both the tibia and distal fibula, is greater than expected due to patent arteries visible. There may be a combination of micro- and macrovascular disease. [facility]
[2017-03-02] MEDS: VANCOMYCIN 1,450 MG in NS 250 ML IV SCH (16:51)
[2017-03-02] MEDS: LASIX IV SCH (20:41)
[2017-03-02] MEDS: LEVAQUIN PO SCH (20:43)
[2017-03-02] MEDS: DULCOLAX PR SCH (20:43)
--- NOTE | 2017-03-02 22:27 | PROGRESS NOTE ---
DATE: 03/02/2017 PRESENT ILLNESS: The patient has severe bilateral leg infection. He also as noted on the aortogram today has severe peripheral vascular disease as well. MEDICATIONS: The patient is receiving vancomycin and today I discontinued Zosyn and put him on Levaquin based on the culture results. PHYSICAL EXAMINATION: Vital Signs: Temperature is 98.5 degrees, pulse 115, respirations 17, blood pressure 124/76. General: This is ill appearing middle-aged male. He is in no acute distress at this time. Thorax: Patient has an increased AP diameter of the chest. Lungs: Clear to auscultation. Cardiovascular: Regular heart rate. Abdomen: Soft and nontender. Extremities: The patient has dressings on both legs. The dressings are intact. LAB AND X-RAY STUDIES: The patient's CBC showed a white count of 16,370, hemoglobin 10.7 and platelet count 435,000. Creatinine 0.8. GFR is greater than 60. Angiogram shows severe peripheral vascular disease. CT scan of the chest showed cardiomegaly, bilateral pleural effusions and severe coronary artery disease. ASSESSMENT AND PLAN: The patient has severe infection of both legs. I plan to continue with vancomycin and Levaquin. Dr. Valle has been seeing the patient for surgical treatment of his infection. COMORBIDITIES: Include severe peripheral vascular disease, diabetes mellitus and cigarette smoking. cc: Johnnie Schmidt MD
[2017-03-03] MEDS: DILAUDID IV PRN ×7 (01:32→17:20)
[2017-03-03] MEDS: HUMALOG SUBQ SCH ×3 (06:34→16:38)
[2017-03-03 07:33] LABS: AGAP 13; BUN 14 mg/dL (8-22); CALCIUM 8.1 mg/dL (8.8-10.2); CHLORIDE 92 mmol/L (98-107); COSMO 269; POTASSIUM 3.3 mmol/L (3.5-5.1); SODIUM 133 mmol/L (136-145); TCO2 28 mmol/L (25-35)
[2017-03-03] MEDS ORDERED: DILAUDID IV ONE (10:20)
[2017-03-03] MEDS: LASIX IV SCH ×2 (10:48→22:08)
[2017-03-03] MEDS: VANCOMYCIN 1,450 MG in NS 250 ML IV SCH (10:48)
[2017-03-03] MEDS: MIRALAX PO SCH ×2 (10:48→22:07)
[2017-03-03] MEDS: LEVAQUIN PO SCH (10:49)
[2017-03-03] MEDS: NORCO-10 PO SCH ×3 (10:49→16:33)
[2017-03-03] MEDS: COLACE PO SCH ×2 (10:49→23:00)
[2017-03-03] MEDS: NICODERM PATCH TD SCH (10:49)
[2017-03-03] MEDS: LOVENOX SUBQ SCH (12:07)
--- NOTE | 2017-03-03 13:23 | PROGRESS NOTE ---
DATE: 03/03/2017 SUBJECTIVE: Feels better this morning as far as pain in his legs. Aimee, the wound nurse, is here, and she is removing his dressings and plans to place a wound VAC today. OBJECTIVE: Vital Signs: No fevers overnight. Temperature is 97.5 degrees, pulse 108, blood pressure 133/80, oxygen saturation 99% on room air. General: He is alert, cachectic-appearing gentleman. Extremities: Dressings are clean and in place in bilateral lower extremities. LABS: Reviewed this morning. Creatinine 0.9. Sodium is a little low at 133, potassium 3.3. Glucose is 139. ASSESSMENT/PLAN: A 52-year-old male status post extensive debridement of bilateral lower extremity wounds. The wounds are clean now, but he has large defects on his right leg and left posterior calf. He continued discussions about formal amputation of his right lower extremity and he is adamantly against this. Plan in the meantime: We will treat with wound VAC dressings to bilateral lower extremities. Change [address] those today with Aimee Santos's help. I appreciate this. We will wait for the wounds to begin granulation and then make plans for definitive coverage, which will likely require split-thickness skin grafts. A CT angiogram showed some tibial disease bilaterally, but no proximal lesion that we could intervene upon the right lower extremity. So, we will monitor his wounds closely. He did appear to have adequate perfusion of his tissues in the right lower extremity and left lower extremity at the time of surgery. He is on appropriate antibiotics. I appreciate the hospitalist service and Dr. Schmidt' recommendations. cc: Junior Valle MD
[2017-03-03] MEDS ORDERED: BENZOIN TINCTURE TOP ONE (14:47)
[2017-03-03] MEDS ORDERED: HURRICAINE SPRAY TOP ONE (15:00)
--- NOTE | 2017-03-03 16:16 | PROGRESS NOTE ---
DATE: 03/03/2017 SUBJECTIVE: Patient reports still complaining of mild pain in the right leg, but definitely better after we started some pain medication. OBJECTIVE: Vital Signs: Temperature 97.8 degrees, heart rate 118, respiratory rate 20, blood pressure 130/73, O2 saturation 95% on room air. General: This is a chronically ill-looking and frail, 52-year-old male, lying in bed, in no acute distress. HEENT: Head is normocephalic, atraumatic. Anicteric sclerae and pale conjunctivae. Mucous membranes moist. Neck: Supple. No JVD noted. No carotid bruits. Cardiovascular: S1 and S2 heard. No murmurs, gallops, or rubs. Regular rate and rhythm. Respiratory: Clear bilaterally to auscultation. No work of breathing or using accessory muscles. Abdomen: Soft, nontender to palpation. Bowel sounds present. No organomegaly. Extremities: No clubbing, cyanosis, or edema. Peripheral pulses present in both legs. The right lower extremity is covered by wound VAC, but they put the wound VAC the leg pain was completely debrided, with exposure of bone, muscle, and tendons. Not foul-smelling. Neurological: Patient alert and oriented x3. Moves all 4 extremities. LABORATORY DATA: There are no laboratories from today. ASSESSMENT AND PLAN: 1. Bilateral lower extremity skin ulcerations with infection. Patient is on vancomycin as per Dr. Schmidt. Dr. Valle is following this patient, as well, and he performed a deep debridement, but, as he mentioned in his note, these leg wounds are not going to heal, but patient is very adamant to have [id number] amputation, which is the recommendation from Surgery. The patient has been advised clearly that those are not going to get better and, of course, because he had some tissue exposed with bones and their endings, it would be a really extremely difficult process to treat his pain. The patient acknowledged understanding, although my feeling is that he is not completely aware of what is going on. In any case, he feels frustrated about the situation and by now we have talked to them about what would be the placement that we need to look for, so he is going to talk with me tomorrow to see what is the best place that he needs to go. 2. Pulmonary edema. We have checked a CT of the chest, which showed severe pulmonary edema, so patient is on Lasix 40 mg IV b.i.d. We will continue with the same management. 3. Tobacco dependence. Patient is on nicotine patch. 4. Diabetes mellitus, type 2. We will continue with the sliding scale insulin. Glucose is under control. cc: Alverto Elias MD
--- NOTE | 2017-03-03 17:13 | PROGRESS NOTE ---
DATE: 03/03/2017 PRESENT ILLNESS: The patient has a very severe bilateral leg infection with a large amount of tissue destruction. MEDICATIONS: The patient is on a combination of vancomycin and at first Zosyn and now Levaquin instead of Zosyn. The patient has been altogether on the antibiotics for the past 6 days. PHYSICAL EXAMINATION: Vital Signs: The patient's temperature is 97.7 degrees, pulse 116, respirations 20, blood pressure 146/93. Generally: The patient looks somewhat malnourished and chronically ill. Lungs: Clear to auscultation. Cardiovascular: Heart rate is regular. Abdomen: Soft and not tender. Thorax: Patient has an increased AP diameter to the chest. Legs: The patient has bilateral VACs on his legs. LAB AND X-RAY: The patient's creatinine is 0.9. The GFR is greater than 60. There was no CBC from today. Yesterday the CBC showed a white count of 16,370, hemoglobin 10.7, and platelet count 435,000. Culture from the wound grew methicillin-resistant Staph aureus and Proteus. ASSESSMENT AND PLAN: Patient has very severe leg infections. My plan is to continue treating him with his current antibiotics. COMORBIDITIES: Include that he has severe peripheral vascular disease, diabetes mellitus and cigarette smoking. cc: Johnnie Schmidt MD
[2017-03-04] MEDS: DILAUDID IV PRN ×10 (00:10→23:19)
[2017-03-04] MEDS: NORCO-10 PO SCH ×5 (00:14→22:02)
[2017-03-04] MEDS: DULCOLAX PR SCH ×2 (00:15→20:47)
[2017-03-04] MEDS: HUMALOG SUBQ SCH ×4 (00:16→16:20)
[2017-03-04] MEDS: VANCOMYCIN 1,450 MG in NS 250 ML IV SCH ×2 (04:22→21:07)
[2017-03-04 06:25] LABS: MANUAL DIFF NEEDED? NO
[2017-03-04 06:40] LABS: BASO% 0.1 % (0.0-0.8); EOS# 0.06 X1000 (0.0-0.7); EOS% 0.3 % (0.0-10.0); HEMOGLOBIN 11.1 g/dL (14.0-18.0); IMM GRAN# 0.18 X1000 (0.0-0.04); LYMPH# 1.51 X1000 (1.2-3.4); LYMPH% 8.7 % (20.5-51.1); MCH 26.9 PG (27-31); MCHC 32.6 g/dL (33-37); MCV 82.5 FL (81-99); MONO# 1.73 X1000 (0.11-0.59); MONO% 9.9 % (1.7-9.3); MPV 8.9 FL (7.4-10.4); PLT 459 X1000 (130-400); RBC 4.12 XMIL (4.7-6.1)
[2017-03-04] MEDS: COLACE PO SCH ×2 (09:12→21:07)
[2017-03-04] MEDS: NICODERM PATCH TD SCH (09:12)
[2017-03-04] MEDS: LEVAQUIN PO SCH (09:12)
[2017-03-04] MEDS: MIRALAX PO SCH ×2 (09:12→21:08)
[2017-03-04] MEDS: LASIX IV SCH ×2 (09:12→21:08)
[2017-03-04 11:20] LABS: AGAP 19; BUN 13 mg/dL (8-22); CALCIUM 8.3 mg/dL (8.8-10.2); CHLORIDE 88 mmol/L (98-107); COSMO 266; POTASSIUM 3.5 mmol/L (3.5-5.1); SODIUM 131 mmol/L (136-145); TCO2 24 mmol/L (25-35)
--- NOTE | 2017-03-04 11:31 | PROGRESS NOTE ---
DATE: 03/04/2017 SUBJECTIVE: Feels okay. Says his strength is getting better. Wound VAC was placed yesterday. Did have some leak that required placement to wall suction. OBJECTIVE: Vital signs: Temperature is 97.4 degrees, pulse 116, blood pressure 133/78, oxygen saturation 100% on room air. General: Chronic ill-appearing, cachectic gentleman. Cardiovascular: Sinus tachycardia. Extremities: Bilateral wound VACs were in place. I will see any progression of cellulitis or necrosis and his distal feet are perfused bilaterally. LABS: I have reviewed his labs. White count remains elevated at 17; no real change here. Hematocrit 34. ASSESSMENT AND PLAN: This is a 49-year-old white male with severe necrotizing infection of the bilateral lower extremities status post debridement. He continues to refuse above-knee amputation on the right which I think is what he needs. But in the meantime, we are treating him with wound VAC therapy. If the wounds granulate, which I am skeptical on the right that will happen, we could discuss skin grafts in the future. He is on adequate antibiotics. Dr. Schmidt is following. Appreciate the medicine services help. cc: Junior Valle MD
[2017-03-04] MEDS: LOVENOX SUBQ SCH (12:58)
--- NOTE | 2017-03-04 15:33 | PROGRESS NOTE ---
DATE: 03/04/2017 PRESENT ILLNESS: The patient has a very severe bilateral leg infection and is status post debridement of the infection. It extends to bone. MEDICATIONS: The patient is on a combination of vancomycin and Levaquin. This is day 7 of treatment with antibiotics for the patient's infection. PHYSICAL EXAMINATION: Vital Signs: Temperature is 97.4 degrees, pulse 116, respirations 17, blood pressure 133/78. General: The patient looks malnourished. He is in no acute distress. Thorax: There is an increased AP diameter to the chest. Lungs: Clear to auscultation. Cardiovascular: Heart rate is regular. Legs: Both have a VAC on. There is no visible erythema. LABORATORY DATA AND X-RAY: The CBC today showed a white count of 17,400. Hemoglobin 11.1 and platelet count 459,000. Creatinine is 0.8. GFR is greater than 60. ASSESSMENT AND PLAN: The patient has very severe leg infections. My plan is to continue treating him with antibiotics. The patient's comorbidities include peripheral vascular disease, diabetes mellitus, and cigarette smoking. cc: Johnnie Schmidt MD
--- NOTE | 2017-03-04 17:42 | PROGRESS NOTE ---
DATE: 03/04/2017 SUBJECTIVE: Patient is still complaining of mild pain that is worse of course every time they change dressing, but denies any fever or chills. OBJECTIVE: Vital signs: Temperature 97.4, heart rate 116, respiratory rate 17, blood pressure 133/78, O2 saturation 100% on room air. General examination: This is a chronically ill looking and frail 52-year-old male lying in bed in no acute distress. HEENT: Head is normocephalic and atraumatic. Anicteric sclerae. Pale conjunctivae. Mucous membranes are moist. Neck: Supple. No JVD noted. No carotid bruit. No lymphadenopathy. No thyromegaly. Cardiovascular exam: S1, S2 heard. No murmurs, gallops, or rubs. Regular rate and rhythm. Respiratory exam: Clear bilaterally to auscultation. No work of breathing. No use of accessory muscles. Abdomen: Soft, nontender to palpation. Bowel sounds present. No organomegaly. Extremities: No clubbing, cyanosis, or edema, and the right lower extremity is covered with wound VAC, as well as the one. Neurological exam: Patient alert and oriented x3. Moves four extremities. LABORATORY DATA: White cell count 17.4, hemoglobin 11.1, hematocrit 34.0, platelets 459. BMP unremarkable. ASSESSMENT AND PLAN: 1. Bilateral lower extremity skin ulcerations with infection. Patient is on vancomycin by Dr. Schmidt, and patient is supposed to be on a few weeks with this medication. I guess it is eight weeks of total antibiotics. Dr. Valle from General Surgery is following this patient, and he recommends [id number] amputation for this right leg, but patient keeps refusing that. We have talked to him about placement because this patient needs to go somewhere to get his IV antibiotic treatment, so he has agreed to go to LTAC. He requested some information about the LTAC and if his insurance company is going to cover. Definitely will let Recreation Activities Coordinator know about his request. 2. Pulmonary edema. The patient is on Lasix 40 mg IV b.i.d. Will continue with same management. Patient is not requiring any oxygen. 3. Diabetes mellitus type 2. Will continue with sliding scale insulin as well. cc: Alverto Elias MD
[2017-03-05] MEDS: DILAUDID IV PRN ×5 (01:12→22:19)
[2017-03-05] MEDS: HUMALOG SUBQ SCH ×5 (01:51→20:53)
[2017-03-05 06:33] LABS: MANUAL DIFF NEEDED? NO
[2017-03-05 06:39] LABS: BASO% 0.1 % (0.0-0.8); EOS# 0.17 X1000 (0.0-0.7); EOS% 1.2 % (0.0-10.0); HEMATOCRIT 33.4 % (42.0-52.0); IMM GRAN# 0.12 X1000 (0.0-0.04); IMM GRAN% 0.9 % (0.0-0.5); LYMPH# 1.52 X1000 (1.2-3.4); LYMPH% 11.1 % (20.5-51.1); MCHC 32.9 g/dL (33-37); MCV 82.1 FL (81-99); MONO# 1.38 X1000 (0.11-0.59); MONO% 10.1 % (1.7-9.3); MPV 8.5 FL (7.4-10.4); NEUT% 76.6 % (42.2-75.2); PLT 428 X1000 (130-400); RBC 4.07 XMIL (4.7-6.1)
[2017-03-05 07:00] LABS: AGAP 11; BUN 11 mg/dL (8-22); CALCIUM 8.3 mg/dL (8.8-10.2); CHLORIDE 89 mmol/L (98-107); COSMO 260; POTASSIUM 3.2 mmol/L (3.5-5.1); SODIUM 129 mmol/L (136-145); TCO2 29 mmol/L (25-35)
[2017-03-05] MEDS: NORCO-10 PO SCH ×4 (09:08→20:43)
[2017-03-05] MEDS: LASIX IV SCH ×2 (09:08→20:44)
[2017-03-05] MEDS: NICODERM PATCH TD SCH (09:09)
[2017-03-05] MEDS: MIRALAX PO SCH ×2 (09:09→20:44)
[2017-03-05] MEDS: LEVAQUIN PO SCH (09:09)
[2017-03-05] MEDS: COLACE PO SCH ×2 (09:09→20:43)
[2017-03-05] MEDS: LOVENOX SUBQ SCH (13:15)
--- NOTE | 2017-03-05 17:24 | PROGRESS NOTE ---
DATE: 03/05/2017 SUBJECTIVE: Patient is feeling fine. Denies any pain when he is resting. No fever or chills. OBJECTIVE: Vital Signs: Temperature 97.4 degrees, heart rate 120, respiratory rate 20, blood pressure 141/86, O2 saturation 96% on room air. General Examination: This is a chronically ill- looking and frail, 52-year-old male, lying in bed, in no acute distress. HEENT: Head is normocephalic and atraumatic. Anicteric sclerae and pale conjunctivae. Mucous membranes moist. Neck: Supple. No JVD noted. No carotid bruits. No lymphadenopathy. No thyromegaly. Cardiovascular: S1, S2 heard. No murmurs, gallops, or rubs. Regular rate and rhythm. Respiratory: Clear bilaterally to auscultation. No work of breathing or using accessory muscles. Abdomen: Soft, nontender to palpation. Bowel sounds present. No organomegaly. Extremities: No clubbing, cyanosis, or edema. There is right lower extremity and left lower extremity with wound VAC. Neurological: Patient is alert and oriented x3. ASSESSMENT/PLAN: 1. Bilateral lower extremity skin ulceration with infection. Patient is being followed with Dr. Schmidt and getting vancomycin. The patient is supposed to be on a week with that medication. The patient agreed to go to LTAC. We have contacted Physical Therapy and the social welfare clerk to work to get a bed for LTAC. We will see when that happens so he can be discharged soon. 2. Pulmonary edema. Patient is on Lasix 40 mg p.o. b.i.d. 3. Diabetes mellitus. We will continue with sliding scale insulin. cc: Alverto Elias MD
[2017-03-05] MEDS: VANCOMYCIN 1,200 MG in NS 250 ML IV SCH (17:34)
--- NOTE | 2017-03-05 18:20 | PROGRESS NOTE ---
DATE: 03/05/2017 SUBJECTIVE: Feels okay. He says the pain in his leg is getting better. OBJECTIVE: Afebrile but remains tachycardic. Blood pressures are 140/87, O2 saturation 98% on room air.General: He is a cachectic ill-appearing gentleman. Bilateral wound VACs were in place. There is no cellulitis or increasing necrosis noted around the wound VAC. Integument is otherwise warm, dry. LABS: Review of his labs, white count is down to 13, hematocrit 33, platelets are 428,000. Creatinine 0.8. Sodium is a little low at 129. Glucose 126. ASSESSMENT/PLAN: 52-year-old male with severe necrotizing infections of bilateral lower extremities status post debridement. Clinically he is improving. He does have large tissue defect on his right lower extremity and left lower extremity and he has refused above-knee amputation which I have recommended. In the meantime we are treating this with wound VACs. The wounds are clean and do not need further debridement at this time and we will need to follow these long-term to see if he ever becomes a candidate for skin grafting. I have discussed the importance of nutrition to him. I have ordered Ensures and ask the nurse to bring these, that he needs drink these 4 times daily. He is very thin, ill with a pre-albumin of 11 on admission so we will need to optimize his enteral nutrition. Will continue follow along. Plan for wound VAC changes I believe today and tomorrow of the bilateral lower extremities but we are doing these 3 times weekly. He is on adequate antibiotics. cc: Junior Valle MD
[2017-03-05] MEDS: DULCOLAX PR SCH (20:44)
[2017-03-06] MEDS: DILAUDID IV PRN ×6 (01:35→22:52)
[2017-03-06 06:33] LABS: MANUAL DIFF NEEDED? NO
[2017-03-06 06:41] LABS: BASO% 0.2 % (0.0-0.8); HEMOGLOBIN 11.1 g/dL (14.0-18.0); IMM GRAN% 0.7 % (0.0-0.5); LYMPH# 1.84 X1000 (1.2-3.4); LYMPH% 12.2 % (20.5-51.1); MCH 26.9 PG (27-31); MCHC 32.6 g/dL (33-37); MCV 82.3 FL (81-99); MONO# 1.62 X1000 (0.11-0.59); MONO% 10.8 % (1.7-9.3); MPV 8.6 FL (7.4-10.4); NEUT% 74.1 % (42.2-75.2); PLT 433 X1000 (130-400); RBC 4.13 XMIL (4.7-6.1)
[2017-03-06] MEDS: HUMALOG SUBQ SCH ×4 (06:50→21:50)
[2017-03-06 06:52] LABS: AGAP 13; BUN 13 mg/dL (8-22); CALCIUM 8.2 mg/dL (8.8-10.2); CHLORIDE 90 mmol/L (98-107); COSMO 263; POTASSIUM 3.1 mmol/L (3.5-5.1); SODIUM 131 mmol/L (136-145); TCO2 28 mmol/L (25-35)
[2017-03-06] MEDS: NORCO-10 PO SCH ×4 (08:47→21:42)
[2017-03-06] MEDS: COLACE PO SCH ×2 (08:47→21:42)
[2017-03-06] MEDS: NICODERM PATCH TD SCH (08:48)
[2017-03-06] MEDS: LEVAQUIN PO SCH (08:48)
[2017-03-06] MEDS: MIRALAX PO SCH ×2 (08:48→21:43)
[2017-03-06] MEDS: LASIX IV SCH ×2 (08:48→21:42)
[2017-03-06] MEDS ORDERED: SANTYL OINT TOP ONE (09:13)
[2017-03-06] MEDS ORDERED: DILAUDID IV ONE (10:08)
[2017-03-06] MEDS: VANCOMYCIN 1,200 MG in NS 250 ML IV SCH (11:31)
[2017-03-06] MEDS ORDERED: KLOR-CON PO ONE (11:36)
[2017-03-06] MEDS: LOVENOX SUBQ SCH (12:19)
--- NOTE | 2017-03-06 12:33 | PROGRESS NOTE ---
DATE: 03/06/2017 PRESENT ILLNESS: The patient has severe bilateral leg infections and is status post extensive debridement of the infections. The infection extends to the bone on the right leg and in fact the bone is visible. MEDICATIONS: This is day 8 of treatment with vancomycin and Levaquin. PHYSICAL EXAMINATION: Vital Signs: Temperature is 97.2 degrees, pulse 120, respirations 18, pressure 147/84. General: This is a chronically ill-appearing, middle-aged male who is in no acute distress. Lungs: Clear to auscultation. Cardiovascular: Regular heart rate. Thorax: Increased AP diameter of the chest. Extremities: The patient's left leg has a large wound posteriorly. It goes deep. The right leg has extensive debridement. There is visible bone and tendons. LABORATORY AND X-RAY: [place] [address], hemoglobin 11.1, and platelet count 433,000. Creatinine 0.8. GFR is greater than 60. A prior culture from the leg shows vancomycin and Proteus. ASSESSMENT AND PLAN: Patient has severe infections bilaterally. My plan is to continue treating him with antibiotics. He is having wound changes directed by Dr. Valle and then he has the VAC placed to both legs following the wound change. COMORBIDITIES: Include peripheral vascular disease, diabetes mellitus and cigarette smoking. cc: Johnnie Schmidt MD
--- NOTE | 2017-03-06 14:26 | PROGRESS NOTE ---
DATE: 03/06/2017 SUBJECTIVE: Patient is feeling fine. No fever or chills. He reports not to good of an appetite. OBJECTIVE: Vital Signs: Temperature 97.2 degrees, heart rate 120, respiratory rate 18, blood pressure 147/74, O2 saturation 100% on room air. General Examination: This is a chronically ill- looking, frail, and malnourished, 52-year-old male, lying in bed, in no acute distress. HEENT: Head is normocephalic, atraumatic. Anicteric sclerae. Pale conjunctivae. Mucous membranes moist. Neck: Supple. No JVD noted. No carotid bruits. No lymphadenopathy. No thyromegaly. Cardiovascular: S1, S2 heard. No murmurs, gallops, or rubs. Regular rate and rhythm. Respiratory: Clear bilaterally to auscultation. No work of breathing or using accessory muscles. Abdomen: Soft. Nontender to palpation. Bowel sounds present. No organomegaly. Extremities: No clubbing, cyanosis, or edema. Right and left lower extremity with wound VAC. Neurological: Patient is alert and oriented x3. Moves 4 extremities. ASSESSMENT AND PLAN: 1. Bilateral lower extremity skin ulceration with infection. The patient has been followed by Dr. Calvin Valle from surgery and Dr. Schmidt from infectious disease. Currently he is getting vancomycin. As we mentioned before, the recommendation from surgery is a right [id number] amputation but patient refused to do that. At this time, this patient in order to continue with care and receiving IV medications and pain medication IV every time he undergoes dressing and wound VAC changes is an LTAC. The patient has agreed to go there. We are basically waiting for public health social worker to see when we can transfer this patient. 2. Pulmonary edema. The patient reports breathing better. Currently he is still on Lasix 40 mg IV b.i.d. We will continue with the same management. 3. Diabetes mellitus type 2. We will continue with sliding scale insulin. cc: Alverto Elias MD
--- NOTE | 2017-03-06 14:58 | PROGRESS NOTE ---
DATE: 03/06/2017 SUBJECTIVE: No issues overnight. He is tolerating his wound VAC change this morning well. OBJECTIVE: Vital Signs: No fevers. Heart rates persistent in the 1-teens to 120s, blood pressure 140/84, O2 saturation 100% on room air. General: He is alert and cachectic. Cardiovascular: Sinus tachycardia. Abdomen: Soft. Extremities: His right leg wound, there are some patchy areas of impending necrosis but no purulence any longer and the remaining muscle appears to be well perfused. There is exposed tendon, there is exposed tibia over the course. On the left wound it is more superficial, the muscle at the base appears healthy and the surrounding skin is okay. The lateral ankle wound is granulating as is dorsal foot wound. Wound nurse in the process of placing a wound VAC. Neurologic Exam: He has foot drop on the right. There is no dorsiflexion of the foot and very limited function of the digits and no plantar flexion. The left leg seems overall maintained and his strength at his knee on the right seems okay. DIAGNOSTIC DATA: Reviewed his labs. White count is 15, hematocrit is 34, platelets 433, glucose is 100, creatinine 0.8, sodium is low at 131. ASSESSMENT AND PLAN: A 52-year-old male with a large wounds bilaterally. He has diminished function in the right foot and I have recommended above-knee amputation but he refuses. Left foot I think will heal ultimately. Will need skin graft once some granulation tissue occurs. Wound VAC changes are going okay. Some difficulty with seal on the right but it is maintaining with wall suction. We are doing a contact layer down at the base. No need for further debridement at this time. He is on appropriate antibiotics. He has a long road ahead as far as coverage and wound healing and I suspect this will be fraught with complications in the future but he does not want amputation of his leg. He is profoundly malnourished as well and I have recommended at least 4 Ensures daily in addition to other caloric intake but he is having hard time with this. We will continue to monitor his nutrition. He will need to be nutritionally optimized prior to undergoing any graft coverage and I discussed this with the patient. Continue IV antibiotics and wound dressing changes through the weekend. Plan 3 times weekly wound VAC changes and we will make plans ultimately what he needs going home as far as these VAC changes. cc: Junior Valle MD [facility], [place]
[2017-03-06] MEDS: DULCOLAX PR SCH (21:42)
[2017-03-07] MEDS: DILAUDID IV PRN ×6 (01:21→21:21)
[2017-03-07] MEDS ORDERED: ASPIRIN PO ONE (02:24)
[2017-03-07] MEDS: VANCOMYCIN 1,200 MG in NS 250 ML IV SCH (05:39)
[2017-03-07 06:40] LABS: MANUAL DIFF NEEDED? NO
[2017-03-07] MEDS: HUMALOG SUBQ SCH ×4 (06:40→21:20)
[2017-03-07 06:47] LABS: BASO% 0.2 % (0.0-0.8); EOS# 0.35 X1000 (0.0-0.7); HEMATOCRIT 35.5 % (42.0-52.0); HEMOGLOBIN 11.5 g/dL (14.0-18.0); IMM GRAN# 0.07 X1000 (0.0-0.04); IMM GRAN% 0.4 % (0.0-0.5); MCHC 32.4 g/dL (33-37); MCV 83.3 FL (81-99); MONO# 1.47 X1000 (0.11-0.59); MONO% 8.4 % (1.7-9.3); MPV 8.5 FL (7.4-10.4); PLT 400 X1000 (130-400); RBC 4.26 XMIL (4.7-6.1)
[2017-03-07 07:12] LABS: AGAP 12; BUN 15 mg/dL (8-22); CALCIUM 8.7 mg/dL (8.8-10.2); CHLORIDE 92 mmol/L (98-107); COSMO 276; POTASSIUM 3.8 mmol/L (3.5-5.1); SODIUM 136 mmol/L (136-145); TCO2 32 mmol/L (25-35)
[2017-03-07] MEDS: MIRALAX PO SCH ×2 (08:32→21:21)
[2017-03-07] MEDS: ASPIRIN PO SCH (08:32)
[2017-03-07] MEDS: LASIX IV SCH ×2 (08:32→21:17)
[2017-03-07] MEDS: LEVAQUIN PO SCH (08:32)
[2017-03-07] MEDS: COLACE PO SCH ×2 (08:32→21:19)
[2017-03-07] MEDS: NORCO-10 PO SCH ×4 (08:33→21:17)
[2017-03-07] MEDS: NICODERM PATCH TD SCH ×2 (08:33→17:00)
[2017-03-07] MEDS: SANTYL OINT TOP SCH (08:44)
[2017-03-07] MEDS: LOVENOX SUBQ SCH (12:53)
[2017-03-07] MEDS: ISORDIL PO SCH ×2 (12:53→21:19)
[2017-03-07] MEDS: APRESOLINE PO SCH ×2 (12:53→21:19)
--- NOTE | 2017-03-07 13:09 | PROGRESS NOTE ---
DATE: 03/07/2017 SUBJECTIVE: The patient is reporting feeling fine. Denies any chest pain, any difficulty in breathing. No fever or chills. OBJECTIVE: Vital signs: Temperature 98.5, heart rate 114, respiratory 16, blood pressure 125/74, satting 98% on room air. General: This is a chronically looking malnourished and frail 52-year- old male, looking older than his stated age, lying in bed in no acute distress. HEENT: Head is normocephalic and atraumatic. Anicteric sclerae. Pale conjunctivae. Mucous membranes moist. Neck: Supple, no JVD noted, no carotid bruits, no lymphadenopathy, no thyromegaly. Cardiovascular: S1, S2 heard, no murmurs, gallops, or rubs, and regular rate and rhythm. Respiratory: Clear bilaterally to auscultation. A few rales in both bases. The patient is not using any accessory muscles or having work of breathing. Abdomen: Soft, nontender to palpation, bowel sounds present, no organomegaly. Extremities: Right and left lower extremities with wound VACs. Neurological: Patient alert and oriented x3. Wounds on both extremities. LABORATORY DATA: White cell count 17.56, hemoglobin 11.5, hematocrit 35.5, platelets 400. Troponin 0.4. Glucose 159. ASSESSMENT AND PLAN: 1. Bilateral lower extremity skin ulceration with infection. The patient is being followed by Dr. Valle for General Surgery, by Dr. Schmidt for Infectious Disease. Unfortunately, despite receiving the right antibiotics which include vancomycin, white cell count continues to get higher. He has refused many times to get right below-knee amputation. I think this condition is going to get worse and worse. The patient is completely aware of the possible outcome if he refuses amputation. At this point, will continue with antibiotics and wound care. We are waiting for an LTAC bed. 2. [id number]-[id number] myocardial infarction with acute congestive heart failure. The patient yesterday was noted to have an abnormal heart rate, and so EKG was ordered which showed non-ST- elevation myocardial infarction, and troponins returned positive. The ultrasound that was done 10 days ago shows mild left ventricular hypertrophy with an ejection fraction of 25% to 20%. I think those are may be getting worse because of this acute episode. Cardiology has been consulted, and they think that considering this low ejection fraction and the fact that he is getting nonsustained ventricular tachycardia, the prognosis is really poor on this patient. He may have a sudden any time because of an arrhythmia by itself. At this time, we are going to treat his condition conservatively, and we will update this patient about the problems. For congestive heart failure, he is receiving Lasix 40 mg IV b.i.d. Will continue with same management. 3. Diabetes mellitus type 2. Will continue with the sliding scale insulin. 4. Protein calorie malnutrition. Will continue with Ensure shakes. cc: Alverto Elias MD MTDD
[2017-03-07] MEDS: LANOXIN IV SCH ×2 (13:31→17:52)
--- NOTE | 2017-03-07 14:04 | CONSULTATION ---
DATE OF CONSULTATION: 03/07/2017 REQUESTING PHYSICIAN: Hospitalist service. INDICATION: Congestive heart failure, shortness of breath, abnormal troponins. HISTORY: Mr. Bronson is an unfortunate 52-year-old male who was admitted to the hospital on February 25 with complaints of increasing swelling and open wounds in the lower extremities. He was seen by Dr. Calvin Valle from the surgical service who diagnosed full- thickness wounds of bilateral lower extremities of unclear etiology. He suspected peripheral vascular disease. The patient underwent an aorta CTA on March 02 that shows rather severe vascular disease bilaterally, left greater than right; extensive tissue loss of the right lower extremity with exposed bone of both the tibia and distal fibula, greater than expected due to patent arteries visible. This may be a combination of microvascular disease and macrovascular disease. The patient thereafter had a chest CT the same day that showed cardiomegaly, bilateral pleural effusions, and extensive coronary artery calcification. Yesterday, March 06, the patient became tachycardic, dyspneic. They came to the bedside, evaluated him. He was tachycardic. His heart rate was in the hundreds, and telemetry revealed a 6-beat run of ventricular tachycardia nonsustained. He has had several other runs of ventricular tachycardia. one was a 22-beat run of ventricular tachycardia. His troponin level was elevated at 0.061 on February 25, then on February 26 it was 0.068, on March 07 it was 0.450 and 0.409. The patient has been given Lasix. He is breathing somewhat better. This morning, his electrolytes are more normal. Sodium is 136, potassium 3.8, BUN 15, creatinine 0.8. A 2-D echocardiogram was done on this patient on February [address] Yepez indicating aortic valve sclerosis. Ejection fraction of the left ventricle was 20% to 25%, global impairment, mild left atrial enlargement. The patient has no prior history of coronary heart disease or stroke. He has been told that he has diabetes. At the time of admission, he was not taking any medication. He has no reported history of hypertension. The patient says that he had developed the swelling of his legs since the first of the year, and subsequently, he developed wounds. He was seeing a doctor at the [facility] facility, and eventually it got so bad that he needed to be admitted for further management. He was seen by Dr. Valle at the wound center on February 24 and admitted the next day. SURGICAL HISTORY: Positive for a left knee procedure after trauma in 2002. SOCIAL HISTORY: He is . He used to work for [employer] in [place], retired about 3 years ago. He has 2 grownup children. He has been a smoker of a pack of cigarettes a day for 40- something years. The patient has lost about 30 pounds over the course of the past 4 or 5 years. PHYSICAL EXAMINATION TODAY: Vital signs: Blood pressure 125/74, pulse 114, temperature 98.5, respirations 16. General: He is a cachectic male, alert, oriented. He appears to be slightly tachypneic. Neck: Neck veins appear to be prominent at 5 cm. HEENT: Otherwise unremarkable. No cervical bruits. Chest: Reveals diminished breath sounds bilaterally. There is dullness to percussion at both bases, diminished breath sounds. I do not hear wheezes or crepitance. Cardiac: Heart sounds are tachycardic, regular. I cannot tell for sure if there is a gallop. Abdomen: Soft, no masses, no hepatomegaly, no bruits. Extremities: Covered by dressing, and he is on sort of a continuous pump. His pulses are markedly diminished in both lower extremities. Neurological: He has some weakness in the legs. Upper extremities have normal strength. Cranial nerves normal. He is alert and oriented x3. ADDITIONAL BLOOD WORK: White count 17,530, hemoglobin 9.5, hematocrit 35.5. IMAGING: His most current chest x-ray was done on the , which showed increasing pulmonary edema, pneumonia, possible cavity formation in the right lung which was not confirmed by CT scan the same day. IMPRESSION: 1. Patient has chronic congestive heart failure, systolic dysfunction, with acute exacerbation. The etiology of this is probably severe coronary heart disease. He demonstrates extensive coronary calcification on the CT scan of the chest. 2. The patient has severe obstructive peripheral arterial disease of the lower extremities with open wounds, active necrosis/infection. 3. Long-term smoker. 4. History of diabetes mellitus. 5. Non sustained ventricular tachycardia. 6. Cardiac cachexia/ malnutrition. RECOMMENDATION: At this point in time, we will suggest conservative management with low-dose digoxin, vasodilators, AMY inhibitors. The patient's prognosis is really very poor. With active infected lesions in the legs, we cannot offer any kind of diagnostic procedure. He is not a candidate for any salvage intervention since there is no acute ST infarction on him. Consideration should be given at discussing end-of-life measures, since this patient is probably not going to make it too far with the combination of pathology that he has. Thank you again for the opportunity to participate in his evaluation. Best regards. cc: Lobo Kapoor MD MTDD
[2017-03-07] MEDS: CAPOTEN PO SCH (21:18)
[2017-03-07] MEDS: DULCOLAX PR SCH (21:23)
--- NOTE | 2017-03-07 23:17 | PROGRESS NOTE ---
DATE: 03/07/2017 SUBJECTIVE: The patient has no complaints other than some occasional pains in his legs. OBJECTIVE: Vital signs: He is afebrile. Vital signs are stable. General: Alert, oriented x3. No acute distress. Extremities: both legs have wound VACs which are intact and working appropriately. LABORATORY: White blood cell count 17,000, hemoglobin 11, platelet count 400, 000. ASSESSMENT AND PLAN: This is a 52-year-old male with necrotic wounds on both lower legs status post extensive debridement. He is undergoing wound care with the dressing changes and the negative pressure dressings. He has also recently been evaluated by Dr. Kapoor today with findings of chronic congestive heart failure, systolic dysfunction with acute exacerbation and probably severe coronary artery disease, unfortunately is not a candidate for any salvage intervention at this time. cc: Izaiah Magallon MD MTD
[2017-03-08] MEDS: LANOXIN IV SCH ×2 (00:40→05:18)
[2017-03-08] MEDS: VANCOMYCIN 1,200 MG in NS 250 ML IV SCH ×2 (00:41→17:28)
[2017-03-08] MEDS: DILAUDID IV PRN ×6 (02:28→23:52)
[2017-03-08] MEDS: CAPOTEN PO SCH ×3 (05:19→20:29)
[2017-03-08 06:17] LABS: MANUAL DIFF NEEDED? NO
[2017-03-08 06:18] LABS: BASO% 0.2 % (0.0-0.8); EOS# 0.57 X1000 (0.0-0.7); EOS% 3.5 % (0.0-10.0); HEMATOCRIT 34.5 % (42.0-52.0); HEMOGLOBIN 11.5 g/dL (14.0-18.0); IMM GRAN% 0.6 % (0.0-0.5); LYMPH# 1.61 X1000 (1.2-3.4); LYMPH% 9.9 % (20.5-51.1); MCH 27.7 PG (27-31); MCHC 33.3 g/dL (33-37); MCV 83.1 FL (81-99); MONO# 1.32 X1000 (0.11-0.59); MONO% 8.1 % (1.7-9.3); MPV 8.2 FL (7.4-10.4); NEUT% 77.7 % (42.2-75.2); PLT 377 X1000 (130-400); RBC 4.15 XMIL (4.7-6.1)
[2017-03-08] MEDS: HUMALOG SUBQ SCH ×4 (06:32→21:00)
[2017-03-08 06:43] LABS: AGAP 11; BUN 12 mg/dL (8-22); CALCIUM 8.3 mg/dL (8.8-10.2); CHLORIDE 93 mmol/L (98-107); COSMO 270; POTASSIUM 3.2 mmol/L (3.5-5.1); SODIUM 135 mmol/L (136-145); TCO2 31 mmol/L (25-35)
[2017-03-08] MEDS: NORCO-10 PO SCH ×4 (09:31→20:29)
[2017-03-08] MEDS: LEVAQUIN PO SCH (09:31)
[2017-03-08] MEDS: APRESOLINE PO SCH ×3 (09:32→20:30)
[2017-03-08] MEDS: ASPIRIN PO SCH (09:32)
[2017-03-08] MEDS: ISORDIL PO SCH ×3 (09:32→20:30)
[2017-03-08] MEDS: COLACE PO SCH ×2 (09:32→20:29)
[2017-03-08] MEDS: SANTYL OINT TOP SCH (09:33)
[2017-03-08] MEDS: MIRALAX PO SCH ×2 (09:33→20:32)
[2017-03-08] MEDS: LASIX IV SCH ×2 (09:33→20:30)
[2017-03-08] MEDS: LOVENOX SUBQ SCH (11:52)
--- NOTE | 2017-03-08 12:15 | PROGRESS NOTE ---
DATE: 03/08/2017 SUBJECTIVE: Patient reports pain is controlling both legs. Denies any fever, chills, any sensation of palpitation. No chest pain. OBJECTIVE: Vital Signs: Temperature 98.1 degrees, heart rate 123, respiratory rate 22, blood pressure 138/91, O2 saturation 99% on room air. General Examination: This is a chronically ill- looking, frail, and malnourished 52-year-old male, looking older than his age, lying in bed, in no acute distress. HEENT: Head is normocephalic, atraumatic. Anicteric sclerae. Pale conjunctivae. Mucous membranes moist. Neck: Supple. No JVD noted. No carotid bruits. No lymphadenopathy. No thyromegaly. Cardiovascular: S1 and S2 heard. Tachycardic. No murmurs, gallops, or rubs. Regular rate and rhythm. Respiratory: There are a few rales in both bases but patient is not using any accessory muscles or having work of breathing. Abdomen : Soft. Nontender to palpation. Bowel sounds present. No organomegaly. Extremities: Both lower extremities with wound VAC in place. Neurological: Patient alert and oriented x3. Able to move 4 extremities. Cranial nerves 2 through 12 grossly normal. LABORATORY DATA: White cell count 16.3, hemoglobin 11.5, hematocrit 34.5, platelets 377,000. BMP shows potassium 3.2. ASSESSMENT AND PLAN: 1. Bilateral lower extremity skin ulcerations with infection. Patient continues to receive antibiotics, in this case it is vancomycin, for this infection. As we mentioned before, the white cell count is still high and I guess it is because despite recommendations from general surgery he refused to have a right zxsoy-wnw-xxsg amputation. At this point , we are going to continue with wound care and he is waiting for a bed in an LTAC. 2. Usq-TM-vmwrxie elevation myocardial infarction with acute congestive heart failure. We had a long conversation about the situation. Patient was informed in depth about his current heart disease. Patient had a pbv-MT-yokoksr elevation myocardial infarction and the ejection fraction now is 20 to 25%. On the telemetry we noted yesterday nonsustained V-tach, abnormal heart rhythm noted. Cardiology is following this patient. We have informed this patient that with this low ejection fraction fatal arrhythmias can happen anytime and that can cause cardiac arrest at any time. The fact that we are seeing some recorded on telemetry that can happen at any time. Patient is not a candidate for any defibrillator because he has an infection that is going on. The patient refused to have an amputation which will be the ultimate solution for this infection. In any case, he was made aware of that and we were talking about code status and patient reports that he is going to think about it. At this time, we are going to continue with conservative treatment. 3. Diabetes mellitus type 2. We will continue with sliding scale insulin. 4. Protein-calorie malnutrition. We will continue with Ensure shakes. Overall the prognosis of this patient is very poor, extremely poor. Patient with a chronic infection that he refused to have an amputation. White cell count is high despite getting on the right medication, in this case vancomycin. On top of that, a non-STEMI has happened and that can produce a fatal arrhythmia at any time but patient prefers still to be on full code and he will think about changing the status. He will probably give us an answer tomorrow or the day after. cc: Alverto Elias MD MTDD
[2017-03-08] MEDS: NICODERM PATCH TD SCH (16:00)
[2017-03-08] MEDS: DULCOLAX PR SCH (20:32)
[2017-03-09] MEDS: DILAUDID IV PRN ×7 (02:25→22:10)
[2017-03-09] MEDS: HUMALOG SUBQ SCH ×5 (03:06→22:12)
[2017-03-09] MEDS: CAPOTEN PO SCH ×3 (05:34→22:15)
[2017-03-09 06:30] LABS: AGAP 10; BUN 11 mg/dL (8-22); CALCIUM 8.6 mg/dL (8.8-10.2); CHLORIDE 93 mmol/L (98-107); COSMO 266; POTASSIUM 3.4 mmol/L (3.5-5.1); SODIUM 133 mmol/L (136-145); TCO2 30 mmol/L (25-35)
--- NOTE | 2017-03-09 06:32 | EKG Report ---
Test Performed on : 03/07/2017 09:34:53 AM Test Reason : VT/CAD/pulmonary edema Blood Pressure : / mmHG Vent. Rate : 120 BPM Atrial Rate : 120 BPM P-R Int : 120 ms QRS Dur : 088 ms QT Int : 348 ms P-R-T Axes : 055 040 099 degrees QTc Int : 491 ms Sinus tachycardia. Possible Left atrial enlargement Anterior infarct , age undetermined Abnormal ECG When compared with ECG of 26-FEB-2017 10:11, No significant change was found Confirmed by Yaquelin AGUILERA, Lam Solorzano ([id number]) on 03/09/2017 8:08:22 AM
[2017-03-09] MEDS: NORCO-10 PO SCH ×4 (09:11→23:02)
[2017-03-09] MEDS: APRESOLINE PO SCH ×3 (09:11→18:06)
[2017-03-09] MEDS: ASPIRIN PO SCH (09:11)
[2017-03-09] MEDS: LEVAQUIN PO SCH (09:11)
[2017-03-09] MEDS: COLACE PO SCH ×2 (09:11→22:16)
[2017-03-09] MEDS: LASIX IV SCH ×2 (09:12→22:00)
[2017-03-09] MEDS: ISORDIL PO SCH ×3 (09:12→18:06)
[2017-03-09] MEDS: MIRALAX PO SCH ×2 (09:12→22:16)
[2017-03-09 10:23] LABS: MANUAL DIFF NEEDED? NO
[2017-03-09 10:24] LABS: BASO% 0.3 % (0.0-0.8); EOS# 0.79 X1000 (0.0-0.7); EOS% 4.1 % (0.0-10.0); HEMATOCRIT 38.8 % (42.0-52.0); HEMOGLOBIN 12.7 g/dL (14.0-18.0); IMM GRAN# 0.08 X1000 (0.0-0.04); IMM GRAN% 0.4 % (0.0-0.5); LYMPH# 1.11 X1000 (1.2-3.4); LYMPH% 5.7 % (20.5-51.1); MCH 27.3 PG (27-31); MCHC 32.7 g/dL (33-37); MCV 83.3 FL (81-99); MONO# 1.08 X1000 (0.11-0.59); MONO% 5.6 % (1.7-9.3); MPV 8.3 FL (7.4-10.4); NEUT% 83.9 % (42.2-75.2); PLT 443 X1000 (130-400); RBC 4.66 XMIL (4.7-6.1)
[2017-03-09] MEDS: VANCOMYCIN 1,200 MG in NS 250 ML IV SCH (11:15)
--- NOTE | 2017-03-09 11:45 | PROGRESS NOTE ---
DATE: 03/09/2017 SUBJECTIVE: Patient is feeling fine. Denies any chest pain or shortness of breath. OBJECTIVE: Vital Signs: Temperature 97.6 degrees, heart rate 126, respiratory rate 18, blood pressure 150/89, O2 saturation 98% on room air. General Examination: This is a chronically ill- looking, frail, and malnourished, 52-year-old, male, lying in bed, in no acute distress. Looking older than his age. HEENT: Head is normocephalic and atraumatic. Anicteric sclerae and pale conjunctivae. Mucous membranes moist. Neck: Supple. No JVD noted. No carotid bruits. No lymphadenopathy. No thyromegaly. Cardiovascular Examination: S1 and S2 heard. Tachycardic. No murmurs, gallops, or rubs. Regular rate and rhythm. Respiratory Examination: A few rales still present in both bases. The patient is not using any accessory muscles or having work of breathing. Abdomen: Soft, nontender to palpation. Nondistended. Bowel sounds present. No organomegaly. Extremities: Both lower extremities with wound VAC in place. Neurological Examination: Patient is alert and oriented x3. Moves 4 extremities. Laboratory Data: White cell count 19.33, hemoglobin 12.7, hematocrit 38.8, platelets 443,000. The BMP is completely unremarkable. ASSESSMENT AND PLAN: 1. Bilateral lower extremity skin ulcerations with infection. Patient continued receiving antibiotics. In this case, he is receiving vancomycin and levofloxacin. Dr. Schmidt is following this patient. Unfortunately, the white cell count is still high. He has been recommended many times by a general surgeon that this infection that he had with bone exposure, with muscle exposure is not going to heal because he is malnourished but he refused to have amputation. As we mentioned before, this patient is not improving. We are waiting for a long-term acute care bed to continue treatment. Patient has not been realistic about his current situation. He thinks that both legs are going to heal. In any case, we will see. We are awaiting for a long-term acute care bed. The patient may need to be on intravenous antibiotics for a while. We will see if for home, Dr. Schmidt plans to keep this patient on antibiotics. 2. Non-ST segment elevation myocardial infarction/acute congestive heart failure. Dr. Kapoor from cardiology is following this patient. Basically, his ejection fraction was 20% and considering that low ejection fraction, he probably needs a defibrillator but because of this chronic condition, that is not even well treated because this patient refused having amputation, he is not a candidate for any defibrillator. We have noticed that in the telemetry, there was some nonsustained ventricular tachycardia noted so the patient was informed that considering this reason, myocardial infarction and this is very low ejection fraction, he is a high risk of developing fatal arrhythmia that can cause cardiac arrest. Palliative care has been consulted and finally the decision was made to change the code status to es-xdj-[id number] level 1. At this point, we will continue with conservative treatment according to cardiology. 3. Diabetes mellitus type 2. We will continue with the sliding scale insulin. 4. Protein-calorie malnutrition. We will continue with Ensure shakes. Overall, this patient is stable but considering all his multiple medical conditions, the prognosis is very poor. Basically, we are waiting for a long-term acute care bed. We are going to release him when we get a bed. cc: Alverto Elias MD MTDD
[2017-03-09] MEDS: LOVENOX SUBQ SCH (13:11)
--- NOTE | 2017-03-09 17:08 | PROGRESS NOTE ---
DATE: 03/09/2017 PRESENT ILLNESS: The patient has severe bilateral leg infections and is status post extensive debridement of the infections. The bone is involved in the right leg infection. MEDICATIONS: This is day 11 of treatment with vancomycin and Levaquin. PHYSICAL EXAMINATION: Vital Signs: Temperature is 97.6 degrees, pulse 126, respirations 18, pressure 150/89. General: This is a chronically ill-appearing, middle-aged male. He is in no acute distress. Lungs: Clear to auscultation. Cardiovascular: Regular heart rate. Abdomen: Soft and nontender. Extremities: Legs, both of them have the VAC on. The patient refused to have the dressings changed today. LABORATORY AND X-RAY: The white count is up to 19,330, hemoglobin 12.7, platelet count 443,000. Creatinine is 0.6. GFR is greater than 60. ASSESSMENT AND PLAN: 1. Patient has severe leg infections. His white count is increasing. What I plan to do is discontinue Levaquin and start the patient on cefepime to expand the gram-negative haile coverage. The vancomycin will be continued. 2. Comorbidities include peripheral vascular disease, diabetes mellitus, and cigarette smoking. cc: Johnnie Schmidt MD
--- NOTE | 2017-03-09 17:31 | PALLIATIVE CARE CONSULTATION ---
DATE: 03/09/2017 REQUESTING PHYSICIAN: Alverto Elias MD REASON FOR CONSULTATION: Goals of care. HISTORY OF PRESENT ILLNESS: This is a 52-year-old, cachectic male, who was admitted on 02/25/2017 after presenting to the emergency department with complaints of bilateral lower extremity ulcerations and edema, that have became progressively worse over the last 3 weeks. Prior to this admission he was being [facility]. Since admission, Dr. Valle has performed lower extremity debridement and Dr. Schmidt is on board and managing the treatment of the wound infections. Despite the use of multiple antibiotics, Mr. Bronson's white blood cell count remains high. Amputation has been discussed; however, the patient has refused. Also since admission, Mr. Bronson has experienced a non ST-segment elevation myocardial infarction. Cardiology is following the patient. Cardiac workup has revealed severe coronary heart disease. It is also of note that his ejection fraction is 20-25%. Telemetry has also revealed some nonsustained ventricular tachycardia. Unfortunately, Mr. Bronson is not a candidate for any salvage intervention at this time due to his active infection. Currently, Mr. Bronson is sitting up in the hospital bed. He denies pain, shortness of breath, anxiety, or depression. He does not have any family present for the consultation. He states that he has a support system consisting of an aunt and his son; however, I am not sure how closely there are involved with his care. The palliative care team has been consulted to assist with goals of care. REVIEW OF SYSTEMS: Twelve point review of system has been conducted and otherwise negative except those mentioned in the history of present illness. PAST MEDICAL HISTORY: 1. Diabetes mellitus. 2. Congestive heart failure. 3. Obstructive peripheral artery disease. 4. Nicotine dependence. SOCIAL HISTORY: Alcohol and drug have been denied. He is a current smoker. He is . He has 2 grown children. PHYSICAL EXAMINATION: General: This is a cachectic 52-year-old male , who does not appear to be in any acute distress. HEENT: Atraumatic, normocephalic. Neck: Trachea is midline. Cardiovascular: Increased rate. Regular rhythm. Pulmonary: Lung sounds are diminished. Clear. Respirations are nonlabored. Abdomen: Soft. Bowel sounds are active. Extremities: Bilateral lower extremities have wound vac's in place. All pulses are palpable. Neurological: Alert and oriented to person, place, and time. IMPRESSION: This is a 52-year-old, male, with a past medical history as listed above in the history of present illness. The palliative care team was consulted to assist with goals of care. Mr. Bronson states that he understands the severity of his infection and now his heart disease. However, I am not sure if he truly understands. He states that he understands that he has been told that he has had a myocardial infarction; however, he states since he did not feel any pain during that time, that he believes that it may not have happened. He states that he has been told that he had an infection, but since he has not been shown the numbers he is not sure if he believes he has an infection. We discussed his advanced directives. He states that he does not want CPR, but he would want defibrillation, medications to stimulate or increase his blood pressure, and mechanical ventilation if needed. A DNR level 2 order will be placed, stating that he does not want CPR. I believe at this time currently he is waiting for an LTAC bed. He does not have any questions regarding his discharge plan. As previously mentioned, Mr. Bronson does not have any acute complaints at this time. It appears that his palliative performance scale is 50 %. He is now a DNR Level 2. The palliative care team will continue to follow. Thank you for this consultation. Dictated by JOSEE Conway for Rj Petty MD cc: JOSEE Conway MD [facility]
--- NOTE | 2017-03-09 17:41 | PROGRESS NOTE ---
DATE: 03/09/2017 SUBJECTIVE: Feels okay, refused wound VAC change today. Wants to do it tomorrow. OBJECTIVE: Vital signs: No fevers. Temperature is 97.6 degrees, pulse 126, blood pressure 150/89, O2 saturation 98% on nasal cannula. General: He is cachectic appearing. Cardiovascular: Remains tachycardic. No increased work of breathing. No cough. Extremities: His bilateral lower extremity wound VAC and dressing changes are in place with good suction. There is no cellulitis of the surrounding skin. LABORATORY: His white count back up to 19, hematocrit 35. Creatinine is 0.6, glucose is 101, prealbumin on the was 7.3. Pro-brain natriuretic peptide on 03/07 was 24,483. ASSESSMENT/PLAN: A 52-year-old male status post extensive debridement of bilateral necrotic wounds of the lower extremity. He has wound VAC in place. Persistent white count of unclear etiology. We will check his dressings tomorrow to ensure he does not have any undrained collections, although the last time we saw these end of the last week they looked okay and we will ensure that he does not need any further debridement. He continues to refuse above-knee amputation. I anticipate that he will need wound VAC therapy at least for 1 month prior to pursuing any skin grafts and only then, if there are no signs of ongoing infection, progression of necrosis and his nutrition is optimized and he is not smoking and his blood sugars are well controlled, we could consider wound grafts at that time. Otherwise, we will need to wait until that is the case. Dr. Schmidt is following and is making changes to antibiotics. We will continue to follow along. cc: Junior Valle MD
[2017-03-09] MEDS: MAXIPIME 2 GM/NS 2 GM/100 ML IVPB IV SCH (18:06)
[2017-03-09] MEDS: NICODERM PATCH TD SCH (18:06)
[2017-03-09] MEDS: DULCOLAX PR SCH (22:16)
[2017-03-10] MEDS: DILAUDID IV PRN ×8 (00:11→22:41)
[2017-03-10] MEDS: MAXIPIME 2 GM/NS 2 GM/100 ML IVPB IV SCH ×2 (05:02→18:16)
[2017-03-10] MEDS: VANCOMYCIN 1,200 MG in NS 250 ML IV SCH (06:00)
[2017-03-10 06:21] LABS: MANUAL DIFF NEEDED? NO
[2017-03-10] MEDS: HUMALOG SUBQ SCH ×4 (06:23→20:57)
[2017-03-10 06:29] LABS: BASO% 0.2 % (0.0-0.8); EOS# 0.61 X1000 (0.0-0.7); EOS% 3.5 % (0.0-10.0); HEMATOCRIT 36.6 % (42.0-52.0); HEMOGLOBIN 11.9 g/dL (14.0-18.0); IMM GRAN% 0.6 % (0.0-0.5); LYMPH% 8.5 % (20.5-51.1); MCHC 32.5 g/dL (33-37); MONO# 1.44 X1000 (0.11-0.59); MONO% 8.2 % (1.7-9.3); MPV 8.3 FL (7.4-10.4); PLT 418 X1000 (130-400); RBC 4.41 XMIL (4.7-6.1)
[2017-03-10] MEDS: CAPOTEN PO SCH ×3 (07:39→20:56)
[2017-03-10 08:44] LABS: AGAP 14; ALBUMIN 2.6 g/dL (3.5-5.0); ALKALINE PHOSPHATASE 127 U/L (32-122); BUN 15 mg/dL (8-22); CALCIUM 8.3 mg/dL (8.8-10.2); CHLORIDE 92 mmol/L (98-107); COSMO 273; GOT 17 U/L (10-34); GPT 14 U/L (10-44); POTASSIUM 3.5 mmol/L (3.5-5.1); SODIUM 136 mmol/L (136-145); TCO2 30 mmol/L (25-35); TOTAL BILIRUBIN 0.47 mg/dL (0.20-1.00)
[2017-03-10] MEDS: ISORDIL PO SCH ×4 (09:03→18:16)
[2017-03-10] MEDS: NORCO-10 PO SCH ×4 (09:03→20:55)
[2017-03-10] MEDS: LASIX IV SCH ×2 (09:03→20:56)
[2017-03-10] MEDS: APRESOLINE PO SCH ×4 (09:03→18:16)
[2017-03-10] MEDS: ASPIRIN PO SCH (09:03)
[2017-03-10] MEDS: COLACE PO SCH ×2 (09:04→20:55)
[2017-03-10] MEDS: SANTYL OINT TOP SCH ×2 (09:07)
[2017-03-10] MEDS: MIRALAX PO SCH ×2 (09:07→20:56)
[2017-03-10] MEDS ORDERED: ATIVAN ONE (09:09)
[2017-03-10] MEDS ORDERED: ATIVAN IV ONE (09:13)
--- NOTE | 2017-03-10 09:56 | PROGRESS NOTE ---
DATE: 03/10/2017 SUBJECTIVE: He is to undergo his dressing changes upon evaluation this morning. He is having a lot of discomfort with these, but not much pain once the dressings were in place. He did refuse dressing change yesterday. OBJECTIVE: Vital Signs: Temp is 98 degrees, no fevers overnight. Pulse 100, blood pressure 134/50, oxygen saturation 98% on room air. General: He is alert, in no acute distress. Extremities: Bilateral legs: On the right, the wounds are granulating and they are healthy, beefy red. There is some areas of some fibrinous necrotic tissue that is loosely adherent, but no evidence of ongoing purulence. The tibia is exposed widely. There is some dark discoloration of this anteriorly. On the left, the wounds were cleaning up nicely. There is no need for debridement. There is healthy well perfused muscle. Posterior calf, left lateral ankle and dorsal foot wound is almost healed. LABS: White count down to 17, hematocrit 36, creatinine 0.7, glucose is 96. His albumin is 2.6. ASSESSMENT AND PLAN: This is a 52-year-old male with severe wound infections of bilateral legs status post extensive debridement. VAC changes are going okay. He is on appropriate antibiotics. Clinically he is improving. He has stable foot drop of his right foot. Left wounds are granulating well and are clean. I do not see any need for further debridement surgically, but will begin Santyl therapy with his VAC changes three times weekly. Suspect that the exposed tibia is going be the main limiting factor in this wound healing going forward. He remains malnourished despite encouraging him to drink Ensure. He has been made xp-vee-hxomnvxmarn level 2. We will continue to follow along. cc: Junior Valle MD
[2017-03-10] MEDS: LOVENOX SUBQ SCH (12:11)
--- NOTE | 2017-03-10 14:51 | PALLIATIVE CARE PROGRESS NOTE ---
DATE: 03/10/2017 SUBJECTIVE: Mr. Bronson is resting on my arrival. He states that he did not sleep well last night. He has no acute complaints. OBJECTIVE: General: This is a 52-year-old, cachectic male who does not appear to be in any acute distress. HEENT: Atraumatic, normocephalic. Cardiovascular: Regular rate and rhythm. Pulmonary: Lung sounds are diminished. Clear respirations are nonlabored. Abdomen: Soft. Extremities: Wound VAC in place. All pulses are palpable. Muscle wasting noted. Neurologic: Awake, alert, oriented to person, place and time. ASSESSMENT/PLAN: I met with Mr. Bronson to follow up from yesterday's consultation. He has no acute complaints at this time. He does not have any questions regarding his code status and the change that was made yesterday. I do believe we are still waiting to hear back from LTAC to determine discharge plans. The palliative care team will continue to follow. Dictated by JOSEE Conway for Rj Petty MD cc: JOSEE Conway MD [facility]
--- NOTE | 2017-03-10 15:36 | PROGRESS NOTE ---
DATE: 03/10/2017 SUBJECTIVE: The patient states that he is feeling fine. I had a really large conversation with this patient about his treatment. I told him that probably he will need an amputation and he is still refusing this. For now, this patient has a wound VAC machine on both his lower extremities. Actually this patient gets angry if we had talked about the prognosis of his leg. OBJECTIVE: Vital Signs: Temperature 97.7 degrees, pulse 89, respiratory rate 16, blood pressure 130/69, oxygen saturation 98 on room air. HEENT: Head normocephalic. No trauma. PERRLA. Neck: Supple. No JVD. No masses. Central trachea. Cardiovascular: RRR. S3 noted. No murmurs. Abdomen: Soft, nontender, nondistended. No hepatosplenomegaly. Extremities: Both lower extremities with wound VAC in place. Neurological: This patient is alert and oriented x3. He moves all 4 extremities. LABORATORY: WBC 17.6, hemoglobin 11.9, hematocrit 36.6, platelets 418,000. Sodium 136, potassium 3.5, chloride 92, bicarbonate 30, BUN 15, creatinine 0.7, glucose 96, calcium 8.3. ASSESSMENT AND PLAN: 1. Bilateral lower extremity skin ulceration with infection. We will continue with the same management. Dr. Schmidt from infectious disease department is following this patient. His white blood cells are still high. There is one exposure, muscle exposure, and probably this is not going to get better because of this patient's protein calorie malnutrition. Surgery department offered an amputation but he refused these. 2. Fgh-OK-jfeuyqtbt myocardial infarction in a patient with known congestive heart failure with an ejection fraction around 20 to 25%. This patient is on telemetry. Probably this patient will need in the near future a defibrillator. Cardiology department is following this patient. At this point, we are going to continue with conservative treatment. 3. Type 2 diabetes. Continue with the same management. 4. Protein calorie malnutrition. Continue with his diet plus Ensure. 5. Do Not Resuscitate level 2. I read the previous note from Dr. Katz that said that palliative care has been consulted and finally the decision was made to change the code status to do not resuscitate level 1. I will talk to the palliative care team to corroborate this information and probably I will talk to the patient as well. Apparently this patient does not want CPR but he is okay with defibrillation, medications to stimulate or increase his blood pressure, and mechanical ventilation if needed. cc: Jesús Nichols MD
[2017-03-10] MEDS: NICODERM PATCH TD SCH (18:16)
[2017-03-10] MEDS: DULCOLAX PR SCH (20:57)
[2017-03-11] MEDS: VANCOMYCIN 1,200 MG in NS 250 ML IV SCH ×2
[2017-03-11] MEDS: NORCO-10 PO SCH ×5 (03:00→20:57)
[2017-03-11] MEDS: DILAUDID IV PRN ×10 (03:23→23:59)
[2017-03-11] MEDS: CAPOTEN PO SCH ×3 (04:18→20:58)
[2017-03-11] MEDS: MAXIPIME 2 GM/NS 2 GM/100 ML IVPB IV SCH ×2 (04:18→16:55)
[2017-03-11 07:25] LABS: MANUAL DIFF NEEDED? NO
[2017-03-11 07:40] LABS: BASO% 0.3 % (0.0-0.8); EOS# 0.77 X1000 (0.0-0.7); EOS% 4.6 % (0.0-10.0); HEMATOCRIT 34.4 % (42.0-52.0); IMM GRAN# 0.07 X1000 (0.0-0.04); IMM GRAN% 0.4 % (0.0-0.5); LYMPH# 1.82 X1000 (1.2-3.4); LYMPH% 10.9 % (20.5-51.1); MCH 26.8 PG (27-31); MCV 83.7 FL (81-99); MONO# 1.59 X1000 (0.11-0.59); MONO% 9.5 % (1.7-9.3); MPV 8.4 FL (7.4-10.4); NEUT% 74.3 % (42.2-75.2); PLT 392 X1000 (130-400); RBC 4.11 XMIL (4.7-6.1)
[2017-03-11 08:03] LABS: AGAP 11; BUN 15 mg/dL (8-22); CALCIUM 8.5 mg/dL (8.8-10.2); CHLORIDE 95 mmol/L (98-107); COSMO 273; POTASSIUM 3.1 mmol/L (3.5-5.1); SODIUM 136 mmol/L (136-145); TCO2 30 mmol/L (25-35)
[2017-03-11] MEDS: MIRALAX PO SCH ×2 (08:47→20:58)
[2017-03-11] MEDS: APRESOLINE PO SCH ×3 (08:48→16:50)
[2017-03-11] MEDS: ASPIRIN PO SCH (08:48)
[2017-03-11] MEDS: SANTYL OINT TOP SCH (08:48)
[2017-03-11] MEDS: COLACE PO SCH ×2 (08:48→20:59)
[2017-03-11] MEDS: LASIX IV SCH ×2 (08:49→20:59)
[2017-03-11] MEDS: ISORDIL PO SCH ×3 (08:49→16:50)
[2017-03-11] MEDS: HUMALOG SUBQ SCH ×4 (08:52→22:00)
--- NOTE | 2017-03-11 12:36 | PROGRESS NOTE ---
DATE: 03/11/2017 SUBJECTIVE: No pain. VAC changes going well. Feels his strength is getting better. OBJECTIVE: Vital Signs: Temperature is 98 degrees, pulse 126, blood pressure 123/80, and oxygen saturation 97% on room air. General: Alert. No acute distress. Extremities: Bilateral lower extremity wound VACs are in place, with no increasing cellulitis around these. LABORATORIES: Reviewed. White count is down to 16. Hematocrit 34. Creatinine is 0.7. Glucose 102. ASSESSMENT/PLAN: This is a 52-year-old male with severe wounds of bilateral lower extremities. I checked the wounds yesterday, when they were being changed, and I do not see any need for further debridement at this time other than the wound VAC and Santyl, which we are doing with each VAC change. He is on adequate antibiotics. I do not see any ongoing signs of infection at the site of his surgical sites. Minimal function in his right foot as far as dorsal flexion and plantar flexion. Suspect this is going to be a persistent issue, but his foot is otherwise well perfused. He will need wound VAC therapy at least for a month prior to receiving any tissue coverage with split-thickness skin grafts, and also nutritional optimization. He is drinking Ensure with each meal and, overall, I think this is improving. Can follow him at [facility]. They are making arrangements for him to go a SNF in [place]. cc: Junior Valle MD
[2017-03-11] MEDS: LOVENOX SUBQ SCH (14:15)
[2017-03-11] MEDS ORDERED: NS 250 ML ONE (14:44)
[2017-03-11 14:58] LABS: INR 1.04; PROTIME 10.9 Seconds (9.2-11.7)
--- NOTE | 2017-03-11 15:08 | PROGRESS NOTE ---
DATE: 03/11/2017 SUBJECTIVE: This patient states that he is feeling better. He is still refusing amputation. He has bilateral lower extremity wound VAC. Surgery Department is following this patient. We are working on placement. Probably, this patient will be discharged to an LTAC. OBJECTIVE: Vital Signs: Temperature 98.1 degrees, pulse 120, respiratory rate 20, blood pressure 130/67, O2 saturation 99 on room air. HEENT: Normocephalic. No trauma. PERRLA. Neck: Supple. No JVD. No masses. Central trachea. Cardiovascular: RRR. No murmurs. No gallops. S3 noted. Abdomen soft, nontender, nondistended. No hepatosplenomegaly. Extremities: Both lower extremity with wound VAC in place and dressing. Neurological: The patient is alert and oriented x3. No focal deficits. LABORATORY: WBC 16.6, hemoglobin 11, hematocrit 34.4, platelets 392,000. Sodium 136, potassium 3.1, chloride 95, bicarbonate 30. BUN 15, creatinine 0.7, glucose 102. Calcium 8.5. ASSESSMENT AND PLAN: 1. Bilateral lower extremity ulceration with infection, also bone exposure. We will continue with the same management with Dr. Schmidt from Infectious Disease Department. White blood cells are still high but, compared with the previous days, it is getting better. Surgery Department offered an amputation but he refused it. 2. Unt-VE-ksarvyoqg myocardial infarction in a patient with known congestive heart failure with an ejection fraction around 20%-25%. Continue with telemetry. Probably, this patient will need in the near future a defibrillator. Cardiology Department is following this patient. At this point, we are going to continue just with medical management. 3. Type 2 diabetes. Continue with the same management. 4. Protein calorie malnutrition. Continue with diet plus Ensure. 5. DO NOT RESUSCITATE LEVEL 2. cc: Jesús Nichols MD
[2017-03-11] MEDS: NICODERM PATCH TD SCH (16:56)
--- NOTE | 2017-03-11 18:10 | PROGRESS NOTE ---
DATE: 03/11/2017 PRESENT ILLNESS: The patient has a severely infected bilateral leg infections. He is status post debridement of both legs. The patient has bilateral osteomyelitis. MEDICATIONS: This is day 13 of treatment with vancomycin and at first Levaquin and then cefepime has replaced Levaquin. PHYSICAL EXAMINATION: Vital Signs: Temperature is 98.3, pulse 119, respirations 18, blood pressure 132/69. General: This is a chronically ill-appearing, middle-aged male. He is in no acute distress. Cardiovascular: Heart rate is regular. Abdomen: Soft and nontender. Extremities: Patient has a PICC in his right arm. It was put in today. Both legs have VACs on them. There is some erythema in both feet. ASSESSMENT AND PLAN: Patient has severe leg infections. His white count has come down a little bit since we started cefepime, therefore I plan to continue cefepime along with vancomycin. COMORBIDITIES: Include peripheral vascular disease, diabetes mellitus and cigarette smoking. cc: Johnnie Schmidt MD
[2017-03-11] MEDS: VANCOMYCIN 1,400 MG in NS 250 ML IV SCH (20:00)
[2017-03-11] MEDS: DULCOLAX PR SCH (20:58)
[2017-03-12] MEDS: DILAUDID IV PRN ×6 (02:36→18:18)
[2017-03-12] MEDS: CAPOTEN PO SCH ×3 (05:36→20:51)
[2017-03-12] MEDS: MAXIPIME 2 GM/NS 2 GM/100 ML IVPB IV SCH ×2 (05:36→18:19)
[2017-03-12 06:56] LABS: MANUAL DIFF NEEDED? NO
[2017-03-12 07:12] LABS: BASO% 0.3 % (0.0-0.8); EOS# 0.37 X1000 (0.0-0.7); EOS% 2.7 % (0.0-10.0); HEMATOCRIT 26.9 % (42.0-52.0); HEMOGLOBIN 8.5 g/dL (14.0-18.0); IMM GRAN# 0.09 X1000 (0.0-0.04); IMM GRAN% 0.7 % (0.0-0.5); LYMPH% 10.1 % (20.5-51.1); MCH 26.6 PG (27-31); MCHC 31.6 g/dL (33-37); MCV 84.3 FL (81-99); MONO# 1.33 X1000 (0.11-0.59); MONO% 9.6 % (1.7-9.3); MPV 8.3 FL (7.4-10.4); NEUT% 76.6 % (42.2-75.2); PLT 348 X1000 (130-400); RBC 3.19 XMIL (4.7-6.1)
[2017-03-12 07:36] LABS: AGAP 14; BUN 15 mg/dL (8-22); CALCIUM 8.3 mg/dL (8.8-10.2); CHLORIDE 96 mmol/L (98-107); COSMO 276; POTASSIUM 4.2 mmol/L (3.5-5.1); SODIUM 137 mmol/L (136-145); TCO2 27 mmol/L (25-35)
[2017-03-12] MEDS: HUMALOG SUBQ SCH ×4 (07:55→20:52)
[2017-03-12] MEDS: NORCO-10 PO SCH ×4 (09:08→20:50)
[2017-03-12] MEDS: APRESOLINE PO SCH ×3 (09:09→20:51)
[2017-03-12] MEDS: COLACE PO SCH ×2 (09:09→20:51)
[2017-03-12] MEDS: LASIX IV SCH ×2 (09:09→20:50)
[2017-03-12] MEDS: ASPIRIN PO SCH (09:09)
[2017-03-12] MEDS: ISORDIL PO SCH ×3 (09:09→20:51)
[2017-03-12] MEDS: MIRALAX PO SCH ×2 (09:10→20:53)
[2017-03-12] MEDS: SANTYL OINT TOP SCH (09:10)
[2017-03-12 09:53] LABS: MANUAL DIFF NEEDED? NO
[2017-03-12 10:00] LABS: BASO% 0.5 % (0.0-0.8); EOS# 0.38 X1000 (0.0-0.7); EOS% 2.5 % (0.0-10.0); HEMATOCRIT 33.6 % (42.0-52.0); HEMOGLOBIN 10.8 g/dL (14.0-18.0); IMM GRAN# 0.09 X1000 (0.0-0.04); IMM GRAN% 0.6 % (0.0-0.5); LYMPH% 10.4 % (20.5-51.1); MCH 26.9 PG (27-31); MCHC 32.1 g/dL (33-37); MCV 83.8 FL (81-99); MONO# 1.28 X1000 (0.11-0.59); MONO% 8.3 % (1.7-9.3); MPV 8.2 FL (7.4-10.4); NEUT% 77.7 % (42.2-75.2); PLT 409 X1000 (130-400); RBC 4.01 XMIL (4.7-6.1)
[2017-03-12] MEDS: LOVENOX SUBQ SCH (12:25)
--- NOTE | 2017-03-12 15:12 | PROGRESS NOTE ---
DATE: 03/12/2017 SUBJECTIVE: The patient states that he is feeling better. He has a bilateral lower extremity wound VAC. Surgery Department is following this patient. We are working on placement. Probably this patient will be discharged to a LTAC. OBJECTIVE: Vital Signs: Temperature 98.4 degrees, pulse 123, respiratory rate 18, blood pressure 130/84, oxygen saturation 93 on room air. HEENT: Head normocephalic. No trauma. PERRLA. Neck: Supple. No JVD. No masses. Central trachea. Cardiovascular: RRR. No murmurs. No gallops. No rubs. S3 noted. Abdomen: Soft, nontender, nondistended. No hepatosplenomegaly. Extremities: Both lower extremities with wound VAC in place and dressing. Neurological Examination: The patient is alert and oriented x3. No focal neurological deficits. LABORATORY: WBC 15.3, hemoglobin 10.8, hematocrit 33.6, platelets 409,000. Sodium 137, potassium 4.2, chloride 96, bicarbonate 27, BUN 15, creatinine 0.6, glucose 120, calcium 8.3. ASSESSMENT AND PLAN: 1. Bilateral lower extremity ulceration with infection, also bone exposure. We will continue with the same management with Dr. Schmidt from the Infectious Disease Department. White blood cells are still high but compared with the previous day it is getting better. Surgery Department offered an amputation but he refused. 2. Mmi-LK-fwbdskfki myocardial infarction in a patient with known congestive heart failure with an ejection fraction around 20-25%. Continue with telemetry. Continue with medical management. 3. Type 2 diabetes. Continue with the same management. 4. Protein calorie malnutrition. This patient is tolerating diet plus Ensure. 5. This patient is Do Not Resuscitate Level 2. cc: Jesús Nichols MD
[2017-03-12] MEDS: VANCOMYCIN 1,400 MG in NS 250 ML IV SCH (15:23)
[2017-03-12] MEDS: NICODERM PATCH TD SCH (18:18)
[2017-03-12] MEDS: DULCOLAX PR SCH (20:51)
[2017-03-13] MEDS: DILAUDID IV PRN ×8 (00:56→22:41)
[2017-03-13] MEDS: MAXIPIME 2 GM/NS 2 GM/100 ML IVPB IV SCH ×2 (05:28→17:08)
[2017-03-13] MEDS: CAPOTEN PO SCH ×3 (05:29→20:08)
[2017-03-13] MEDS: HUMALOG SUBQ SCH ×3 (06:06→17:09)
[2017-03-13 06:29] LABS: MANUAL DIFF NEEDED? NO
[2017-03-13 06:39] LABS: BASO% 0.5 % (0.0-0.8); EOS# 0.19 X1000 (0.0-0.7); EOS% 1.5 % (0.0-10.0); HEMATOCRIT 31.6 % (42.0-52.0); HEMOGLOBIN 10.2 g/dL (14.0-18.0); IMM GRAN# 0.08 X1000 (0.0-0.04); IMM GRAN% 0.6 % (0.0-0.5); LYMPH# 1.48 X1000 (1.2-3.4); LYMPH% 11.9 % (20.5-51.1); MCH 26.9 PG (27-31); MCHC 32.3 g/dL (33-37); MCV 83.4 FL (81-99); MONO# 1.16 X1000 (0.11-0.59); MONO% 9.3 % (1.7-9.3); MPV 8.4 FL (7.4-10.4); NEUT% 76.2 % (42.2-75.2); PLT 399 X1000 (130-400); RBC 3.79 XMIL (4.7-6.1)
[2017-03-13 06:59] LABS: AGAP 10; BUN 17 mg/dL (8-22); CALCIUM 8.5 mg/dL (8.8-10.2); CHLORIDE 98 mmol/L (98-107); COSMO 278; SODIUM 137 mmol/L (136-145); TCO2 29 mmol/L (25-35)
[2017-03-13] MEDS: ASPIRIN PO SCH (09:02)
[2017-03-13] MEDS: ISORDIL PO SCH ×3 (09:03→20:09)
[2017-03-13] MEDS: COLACE PO SCH ×2 (09:03→20:08)
[2017-03-13] MEDS: NORCO-10 PO SCH ×4 (09:03→21:26)
[2017-03-13] MEDS: VANCOMYCIN 1,400 MG in NS 250 ML IV SCH (09:03)
[2017-03-13] MEDS: LASIX IV SCH ×2 (09:03→20:08)
[2017-03-13] MEDS: APRESOLINE PO SCH ×3 (09:03→20:09)
[2017-03-13] MEDS: MIRALAX PO SCH ×2 (09:05→20:09)
[2017-03-13] MEDS: SANTYL OINT TOP SCH (09:05)
[2017-03-13] MEDS ORDERED: ATIVAN IV ONE (09:40)
[2017-03-13] MEDS ORDERED: MORPHINE IV PRN (10:53)
[2017-03-13] MEDS ORDERED: ATIVAN IV PRN (10:54)
[2017-03-13] MEDS: LOVENOX SUBQ SCH (12:12)
--- NOTE | 2017-03-13 13:33 | PROGRESS NOTE ---
DATE: 03/13/2017 SUBJECTIVE: Feels okay. Refused VAC change yesterday but is in the process this morning. OBJECTIVE: No fevers. No tachycardia. Wound VAC is in place in the left leg and in the right leg. I have seen pictures taken by Aimee our wound nurse and there are some focal areas that appear to have some focal slough and there are some black eschar overlying the tibia. Reviewed his labs. White count down to 12, hematocrit 31, creatinine 0.6. ASSESSMENT/PLAN: 52-year-old male with severe infections and wounds on his bilateral lower extremities. Progressing, making progress towards getting to an LTAC. He is tolerating wound VAC changes better. I do not see any need for debridement prior to his discharge. I think any further debridement can be done as an outpatient. He would tolerate this well. He is getting Santyl with his VAC changes so this would provide some chemical debridement as well. Dr. Schmidt is following and making recommendations for IV antibiotics and I think plans for disposition are early next week to LTAC. I will check his wounds again on Thursday. cc: Junior Valle MD
--- NOTE | 2017-03-13 15:34 | PROGRESS NOTE ---
DATE: 03/13/2017 SUBJECTIVE: This patient had today a wound VAC dressing change. He is tolerating that. Surgery Department is following this patient. Will continue with antibiotics. He is feeling better. DISPOSITION: We will send this patient to an LTAC once this is approved. OBJECTIVE: Vital Signs: Temperature 98 degrees, pulse 126, respiratory rate 20, blood pressure 127/83, O2 saturation 100% on room air. HEENT: Head normocephalic. No trauma. PERRLA. Neck: Supple. No JVD. No masses. Central trachea. Chest: Clear to auscultation. No wheezing. No rales. Abdomen: Soft, nontender, nondistended. No hepatosplenomegaly. Cardiovascular: RRR. No murmurs. Extremity: Both lower extremities with wound VAC in place and dressing recently changed. Neurological: The patient is alert and oriented x3. No focal neurological deficits. LABORATORY: WBC 12.4, hemoglobin 10.2, hematocrit 31.6, platelets 399,000. Sodium 137, potassium 4, chloride 98, bicarbonate 29, BUN 17, creatinine 0.6, glucose 150, calcium 8.5. ASSESSMENT AND PLAN: 1. Bilateral lower extremity ulceration with infection, also bone exposure. Will continue with the same management and Dr. Schmidt from Infectious Disease Department is following this patient. White count cells are getting better. We will continue with the same management. Surgery Department offered an amputation but he refused. 2. Non-ST elevation myocardial infarction in a patient with known congestive heart failure with an ejection fraction around 20-25%. Continue with telemetry. Continue with medical management. 3. Type 2 diabetes. Continue with the same management. 4. Protein calorie malnutrition. This patient is tolerating diet plus Ensure. 5. This patient is do not resuscitate level 2. cc: Jesús Nichols MD
--- NOTE | 2017-03-13 16:53 | PROGRESS NOTE ---
DATE: 03/13/2017 PRESENT ILLNESS: The patient has severely infected legs which includes also osteomyelitis. He is status post debridement of both legs. MEDICATIONS: This is day 15 of treatment with antibiotics which now consist of vancomycin and cefepime. PHYSICAL EXAMINATION: Vital Signs: Temperature is 98.1 degrees, pulse 127, respirations 20, blood pressure 119/81. General: This is ill-appearing middle-aged male. He is in no acute distress. He does appear chronically ill though. Lungs: Clear to auscultation. Cardiovascular: Regular heart rate. Abdomen: Soft and nontender. Extremities: Patient has a PICC in the right arm. The site is not swollen or red. Both legs have been extensively debrided and the VAC has been placed on both legs. There is some erythema in the right foot but it is less than it was yesterday. LAB AND X-RAY: The patient's CBC today shows a white count of 12, 440, hemoglobin 10.2 and platelet count 399,000. Creatinine 0.6. GFR is greater than 60. There is no new x-ray for today. ASSESSMENT AND PLAN: Patient has severe leg infections. His white count has steadily coming down. I plan to continue with his 2 antibiotics namely cefepime and vancomycin. COMORBIDITIES: Peripheral vascular disease, diabetes mellitus and cigarette smoking. cc: Johnnie Schmidt MD
[2017-03-13] MEDS: NICODERM PATCH TD SCH (17:08)
[2017-03-13] MEDS: DULCOLAX PR SCH (20:09)
[2017-03-14] MEDS: HUMALOG SUBQ SCH ×5 (00:07→22:03)
[2017-03-14] MEDS: DILAUDID IV PRN ×8 (00:54→22:31)
[2017-03-14] MEDS: VANCOMYCIN 1,400 MG in NS 250 ML IV SCH ×2 (01:36→22:32)
[2017-03-14] MEDS: MAXIPIME 2 GM/NS 2 GM/100 ML IVPB IV SCH ×2 (05:03→17:25)
[2017-03-14] MEDS: CAPOTEN PO SCH ×3 (05:03→21:22)
[2017-03-14 07:03] LABS: MANUAL DIFF NEEDED? NO
[2017-03-14 07:06] LABS: BASO% 0.5 % (0.0-0.8); EOS# 0.22 X1000 (0.0-0.7); EOS% 1.9 % (0.0-10.0); HEMATOCRIT 29.7 % (42.0-52.0); HEMOGLOBIN 9.5 g/dL (14.0-18.0); IMM GRAN# 0.06 X1000 (0.0-0.04); IMM GRAN% 0.5 % (0.0-0.5); LYMPH# 1.49 X1000 (1.2-3.4); LYMPH% 12.6 % (20.5-51.1); MCH 26.9 PG (27-31); MCV 84.1 FL (81-99); MONO# 1.15 X1000 (0.11-0.59); MONO% 9.8 % (1.7-9.3); MPV 8.7 FL (7.4-10.4); NEUT% 74.7 % (42.2-75.2); PLT 356 X1000 (130-400); RBC 3.53 XMIL (4.7-6.1)
--- NOTE | 2017-03-14 07:25 | PROGRESS NOTE ---
DATE: 03/14/2017 SUBJECTIVE: No major issues. Had his wound VAC changed yesterday. OBJECTIVE: Vital Signs: Patient is currently afebrile. His heart rate has been mildly elevated in the 120s to 130s. Blood pressure has been stable. General: No acute distress. Wound VAC on bilateral lower extremities in place with good seal. ASSESSMENT AND PLAN: A 52-year-old male, severe infections and wounds to bilateral lower extremities. He currently has a wound VAC in place. Dr. Valle is monitoring for any debridement. He will have his wound VACs likely changed on Thursday. Continue current treatment. cc: Zane Mcdermott MD
[2017-03-14 07:36] LABS: AGAP 12; BUN 16 mg/dL (8-22); CALCIUM 8.3 mg/dL (8.8-10.2); CHLORIDE 95 mmol/L (98-107); COSMO 269; POTASSIUM 4.5 mmol/L (3.5-5.1); SODIUM 133 mmol/L (136-145); TCO2 26 mmol/L (25-35)
[2017-03-14] MEDS: NORCO-10 PO SCH ×4 (09:08→21:22)
[2017-03-14] MEDS: APRESOLINE PO SCH ×3 (09:09→17:25)
[2017-03-14] MEDS: LASIX IV SCH ×2 (09:10→21:23)
[2017-03-14] MEDS: ASPIRIN PO SCH (09:10)
[2017-03-14] MEDS: COLACE PO SCH ×2 (09:10→21:22)
[2017-03-14] MEDS: ISORDIL PO SCH ×3 (09:10→17:26)
[2017-03-14] MEDS: SANTYL OINT TOP SCH (11:09)
[2017-03-14] MEDS: MIRALAX PO SCH ×2 (11:09→22:00)
--- NOTE | 2017-03-14 15:02 | PROGRESS NOTE ---
DATE: 03/14/2017 SUBJECTIVE: This patient states that he is feeling much better. Yesterday, he had a wound VAC dressing change. Surgery Department is following this patient. Basically, we are waiting for placement. OBJECTIVE: Vital Signs: Temperature 97.2 degrees, pulse 125, respiratory rate 20, blood pressure 115/76, oxygen saturation 100% on room air. HEENT: Head normocephalic. No trauma. PERRLA. Neck: Supple. No JVD. No masses. Central trachea. Chest: Clear to auscultation. No wheezing. No rales. Cardiovascular: RRR. No murmurs. No gallops. No rubs. Tachycardic. Abdomen: Soft, nontender, nondistended. No hepatosplenomegaly. Extremities: Both lower extremities with wound VAC in place and dressing recently changed. Neurological: The patient is alert and oriented x3. No focal deficits. LABORATORY: WBC 11.7, hemoglobin 9.5, hematocrit 29.7, platelets 356,000. Sodium 133, potassium 4.5, chloride 95, bicarbonate 26, BUN 16, creatinine 0.5, glucose 116, calcium 8.3. ASSESSMENT AND PLAN: 1. Bilateral lower extremity ulceration and infection, also bone exposure. We will continue with the same management. Dr. Schmidt from the Infectious Disease Department is following this patient. White blood cell count is getting better. We will continue with the same management. The Surgery Department offered an amputation at the beginning, but he refused. 2. Mfc-[id number]-rbddfxfqi myocardial infarction in a patient with known congestive heart failure with an ejection fraction around 20% to 25%. Continue with telemetry. Continue with medical management. 3. Type 2 diabetes. Stable. Continue with the same management. 4. Protein calorie malnutrition. He is tolerating diet and also Ensure. 5. This patient is a Do Not Resuscitate level 2. cc: Jesús Nichols MD
[2017-03-14] MEDS: LOVENOX SUBQ SCH (15:30)
[2017-03-14] MEDS: NICODERM PATCH TD SCH (17:25)
[2017-03-14] MEDS: DULCOLAX PR SCH (21:59)
[2017-03-15] MEDS: DILAUDID IV PRN ×8 (00:29→23:08)
[2017-03-15] MEDS: MAXIPIME 2 GM/NS 2 GM/100 ML IVPB IV SCH ×2 (05:49→16:44)
[2017-03-15] MEDS: CAPOTEN PO SCH ×3 (05:50→21:01)
[2017-03-15] MEDS: HUMALOG SUBQ SCH ×5 (07:04→21:04)
[2017-03-15 08:13] LABS: AGAP 12; BUN 18 mg/dL (8-22); CALCIUM 8.4 mg/dL (8.8-10.2); CHLORIDE 98 mmol/L (98-107); COSMO 273; SODIUM 135 mmol/L (136-145); TCO2 25 mmol/L (25-35)
[2017-03-15] MEDS: APRESOLINE PO SCH ×3 (09:44→16:45)
[2017-03-15] MEDS: LASIX IV SCH ×2 (09:44→21:01)
[2017-03-15] MEDS: COLACE PO SCH ×2 (09:44→21:01)
[2017-03-15] MEDS: ASPIRIN PO SCH (09:44)
[2017-03-15] MEDS: NORCO-10 PO SCH ×4 (09:49→21:01)
[2017-03-15] MEDS: MIRALAX PO SCH ×2 (09:50→21:07)
[2017-03-15] MEDS: ISORDIL PO SCH ×3 (09:50→16:45)
[2017-03-15] MEDS: SANTYL OINT TOP SCH (09:50)
[2017-03-15] MEDS: LOVENOX SUBQ SCH (12:39)
[2017-03-15] MEDS: VANCOMYCIN 1,400 MG in NS 250 ML IV SCH (14:00)
--- NOTE | 2017-03-15 16:24 | PROGRESS NOTE ---
DATE: 03/15/2017 SUBJECTIVE: No acute events overnight. This patient states that he is feeling about the same, he is not complaining of lower extremity pain at this moment. Surgery department is following this patient. We are trying to send this patient to a long-term facility to continue treatment. OBJECTIVE: Vital Signs: Temperature 98.3 degrees, pulse 125, respiratory rate 20, blood pressure 126/80, O2 saturation 99 on room air. HEENT: Head normocephalic. No trauma. PERRLA. Neck: Supple. No JVD. No masses. Central trachea. Chest: Clear to auscultation. No wheezing. No rales. Cardiovascular: RRR. No murmurs. No gallops. No rubs. Tachycardic. Abdomen: Soft, nontender, nondistended. No hepatosplenomegaly. Extremities: Both lower extremities with wound VAC in place and dressing. Neurological: The patient is alert and oriented x3. No focal neurological deficits. LABORATORY: Sodium 135, potassium 4, chloride 98, bicarbonate 25, BUN 18, creatinine 0.6, glucose 111, calcium 8.4. ASSESSMENT AND PLAN: 1. Bilateral lower extremity ulceration and infection with bone exposure. Will continue with the same management, Dr. Schmidt from infectious disease department is following this patient. White blood cell count better. We will continue with the same management. Surgery Department offered an amputation at the beginning but he refused. The possibility of having an amputation in the future is very high. 2. Non-ST elevation myocardial infarction in a patient with known congestive heart failure with an ejection fraction of 20-25%. Continue with telemetry. This patient is not complaining of chest pain or shortness of breath. Continue with medical management. 3. Type 2 diabetes stable. Continue with the same management. 4. Protein calorie malnutrition. This patient is tolerating diet and also Ensure. 5. This patient is do not resuscitate level 2. Overall, this patient is doing good. He is stable. family day care worker is trying to get placement for this patient in an LTAC. Surgery Department and Infectious Disease Department are following this patient. cc: Jesús Nichols MD
[2017-03-15] MEDS: NICODERM PATCH TD SCH (16:45)
[2017-03-15] MEDS: DULCOLAX PR SCH (21:04)
[2017-03-16] MEDS: DILAUDID IV PRN ×7 (01:11→19:53)
[2017-03-16] MEDS: CAPOTEN PO SCH ×3 (05:09→21:48)
[2017-03-16] MEDS: MAXIPIME 2 GM/NS 2 GM/100 ML IVPB IV SCH ×2 (05:09→17:33)
[2017-03-16] MEDS: HUMALOG SUBQ SCH ×4 (06:02→21:51)
[2017-03-16] MEDS: NORCO-10 PO SCH ×4 (08:27→23:49)
[2017-03-16] MEDS: LASIX IV SCH ×2 (09:33→21:48)
[2017-03-16] MEDS: ASPIRIN PO SCH (09:33)
[2017-03-16] MEDS: VANCOMYCIN 1,400 MG in NS 250 ML IV SCH (09:33)
[2017-03-16] MEDS: ISORDIL PO SCH ×3 (09:33→17:34)
[2017-03-16] MEDS: APRESOLINE PO SCH ×3 (09:33→17:34)
[2017-03-16] MEDS: COLACE PO SCH ×2 (09:33→21:48)
[2017-03-16] MEDS: MIRALAX PO SCH ×2 (09:34→21:50)
[2017-03-16] MEDS: SANTYL OINT TOP SCH (09:34)
[2017-03-16] MEDS: LOVENOX SUBQ SCH (13:44)
--- NOTE | 2017-03-16 14:54 | PROGRESS NOTE ---
DATE: 03/16/2017 SUBJECTIVE: No events. Had a busy weekend. He says he is tired this morning from visiting the family. OBJECTIVE: Vital signs: No fevers. Heart rates persistent in the 120s, blood pressure 128/80, oxygen saturation 94% on room air. Extremities: Bilateral lower extremity wound VAC's are in place. Good suction. There is no extending cellulitis and his feet are well perfused. I reviewed his labs. ASSESSMENT: A 52-year-old male with severe infection bilateral lower extremities, status post debridement. He is refusing wound VAC change today. We will plan to look at his wounds tomorrow. The wounds the last time I saw him were granulating well. There is some fibrinous exudate in some locations. I worry about the tibia on the right that was exposed and it does have some dark discoloration of the periosteum here. If this progresses to necrosis, his ability to heal his wound will not be the case. Systemically, signs of infection are improving. He is on adequate antibiotics. I think he is getting ready for discharge to LTAC and I will examine his wounds tomorrow. Also, diet is improving with Ensure supplementation. cc: Junior Valle MD
[2017-03-16] MEDS: NICODERM PATCH TD SCH (17:35)
--- NOTE | 2017-03-16 17:49 | PROGRESS NOTE ---
DATE: 03/16/2017 SUBJECTIVE: No acute events overnight. This patient is feeling better. He is not complaining of lower extremity pain at this moment. Surgery Department is following this patient pending placement. OBJECTIVE: Vital Signs: Temperature 98.4 degrees, pulse 120, respiratory rate 18, blood pressure 120/90, O2 saturation 99 on room air. HEENT: Head normocephalic. No trauma. PERRLA. Neck: Supple. No JVD. No masses. Central trachea. Chest: Clear to auscultation. No wheezing. No rales. Cardiovascular: RRR. No murmurs. No gallops. No rubs. Tachycardic. Abdomen: Soft, nontender, nondistended. No hepatosplenomegaly. Extremities: Both lower extremity with wound VAC in place and dressing. Neurological: The patient is alert, oriented x3. No focal neurological deficits. LABORATORY: No lab work today. Glucose 138. ASSESSMENT AND PLAN: 1. Bilateral lower extremity ulceration and infection with bone exposure. Will continue with the same management. Dr. Schmidt from infectious disease department is following this patient. White blood cell count better. Will continue with the same treatment for now. Surgery Department offered an amputation at the beginning of the treatment but he refused. The possibility of having an amputation in the future is very high. 2. Non-ST elevation myocardial infarction in a patient with known congestive heart failure with an ejection fraction of 20-25%. Continue with telemetry. This patient is not complaining of chest pain or shortness of breath. Continue with medical management. 3. Type 2 diabetes. Continue with the same treatment. 4. Protein calorie malnutrition. Continue with diet and Ensure. 5. This patient is do not resuscitate level 2. Overall this patient is doing better. He is stable. 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 Surgery Department, Infectious Disease Department is following this patient. cc: Jesús Nichols MD
--- NOTE | 2017-03-16 20:35 | PROGRESS NOTE ---
DATE: 03/16/2017 PRESENT ILLNESS: The patient is status post debridement of severely infected legs which included osteomyelitis. MEDICATIONS: He is on day 18 of treatment with antibiotics which now consist of vancomycin and cefepime. PHYSICAL EXAMINATION: Vital Signs: Temperature is 98.4 degrees, pulse 120, respirations 18, pressure 120/90. General: This is a chronically ill-appearing, middle-aged male. He is in no acute distress. Lungs: Clear to auscultation. Cardiovascular: Regular heart rate. Chest: Patient has an increased AP diameter of the chest. Abdomen: Soft and nontender. Extremities: Both legs have VAC's on them. There is no visible erythema or purulence. The patient's right arm has a PICC in it. The site is not erythematous or swollen. LABORATORY AND X-RAY: There is no new x-ray. There are no laboratory tests for today. Yesterday, the creatinine was 0.6 and the GFR is greater than 60 and 2 days ago the CBC showed a white count of 11,780, hemoglobin 9.5, and platelet count 356,000. ASSESSMENT AND PLAN: The patient has severe leg infections. Plan is to continue the antibiotics and transfer to a LTAC. COMORBIDITY: Peripheral vascular disease, diabetes mellitus, cigarette smoking. cc: Johnnie Schmidt MD MTDD
[2017-03-16] MEDS: DULCOLAX PR SCH (21:50)
[2017-03-17] MEDS: DILAUDID IV PRN ×5 (00:54→20:50)
[2017-03-17] MEDS: VANCOMYCIN 1,400 MG in NS 250 ML IV SCH ×2 (02:53→20:49)
[2017-03-17] MEDS: CAPOTEN PO SCH ×2 (05:05→16:35)
[2017-03-17] MEDS: MAXIPIME 2 GM/NS 2 GM/100 ML IVPB IV SCH ×2 (05:05→16:37)
[2017-03-17] MEDS: HUMALOG SUBQ SCH ×4 (06:39→20:53)
[2017-03-17] MEDS: APRESOLINE PO SCH ×3 (09:55→16:35)
[2017-03-17] MEDS: COLACE PO SCH ×2 (09:55→20:47)
[2017-03-17] MEDS: NORCO-10 PO SCH (09:55)
[2017-03-17] MEDS: ISORDIL PO SCH ×3 (09:56→17:44)
[2017-03-17] MEDS: ASPIRIN PO SCH (09:56)
[2017-03-17] MEDS: LASIX IV SCH ×2 (09:56→20:50)
[2017-03-17] MEDS: MIRALAX PO SCH ×2 (10:05→20:52)
--- NOTE | 2017-03-17 11:03 | PROGRESS NOTE ---
DATE: 03/17/2017 SUBJECTIVE: No events overnight. He is having his VAC changed today. Quite a bit of discomfort with this. OBJECTIVE: No fevers. Stable tachycardia in the 120s. Blood pressure is 141/82, oxygen saturation is 100% on room air. General: No acute distress. Cardiovascular: Sinus tachycardia. Extremities: The left leg is granulating well. There is no necrotic tissue here. Healthy muscle at the bed. Right lower extremity has some dark eschar overlying the tibia on the right and some fibrinous exudate with a rim of skin necrosis medially and posteriorly. No cellulitis. DIAGNOSTIC DATA: I reviewed his labs. ASSESSMENT AND PLAN: This is a 52-year-old male with severe necrotizing infection of bilateral lower extremities. He has been debrided extensively once. He has undergone enzymatic debridement and wound VAC changes over the last couple of weeks. He has had some demarcation of tissue in the right lower extremity that has failed to improve with enzymatic and local wound care debridement. I discussed with the patient and recommended excisional debridement tomorrow to facilitate ongoing wound healing. I do not see any signs of infection here. We will plan to go tomorrow for this. In the meantime, place wound VAC on the left and plans for outpatient skin graft in the future. As far as the right leg, we will continue Santyl, wet to dry and excisional debridement tomorrow. I made him n.p.o. at midnight for this. He is on scheduled antibiotics. cc: Junior Valle MD
[2017-03-17] MEDS ORDERED: DILAUDID IV PRN (14:12)
[2017-03-17] MEDS ORDERED: DURAGESIC 25 MICROGM/HR PATCH TD SCH (14:15)
[2017-03-17] MEDS ORDERED: ATIVAN IV PRN (14:24)
[2017-03-17 14:35] LABS: ALLEN TEST NO; BE 4.5 mmoll (-3.0-3.0); BLOOD TYPE ARTERIAL; DRAW SITE R BRACHIAL; METHB 1.3 % (0.0-1.5); O2(CT) 13.5 mL/dL (15.0-23.0); PCO2(98.6) 38 mmHg (35-45); PO2(98.6) 76 mmHg (60-100); SAMPLE BLOOD; SAO2 98.5 % (95.0-100.0); THB 10.1 g/dL (11.5-17.4); pH(98.6) 7.48 (7.35-7.45)
[2017-03-17 14:36] LABS: MODALITY ROOM AIR
--- NOTE | 2017-03-17 15:03 | EKG Report ---
Test Performed on : 03/17/2017 2:14:32 PM Test Reason : vtach Blood Pressure : / mmHG Vent. Rate : 119 BPM Atrial Rate : 119 BPM P-R Int : 120 ms QRS Dur : 082 ms QT Int : 336 ms P-R-T Axes : 063 -57 093 degrees QTc Int : 472 ms Sinus tachycardia. with fusion complexes Possible Left atrial enlargement Left axis deviation Nonspecific T wave abnormality Abnormal ECG When compared with ECG of 07-MAR-2017 09:34, fusion complexes are now present QRS axis shifted left Confirmed by Sandra AGUILERA, Mckay Solorzano ([id number]) on 03/17/2017 3:19:49 PM
--- NOTE | 2017-03-17 15:20 | PROGRESS NOTE ---
DATE: 03/17/2017 SUBJECTIVE: I was called by the nurse that this patient is definitely more lethargic and sleepy. When I talked to him, he answered to verbal stimuli. He denies any symptoms but he is not oriented. OBJECTIVE: Vital Signs: Temperature 97.8 degrees, heart rate 120, respiratory rate 22, blood pressure 142/90, O2 saturation 100% on room air. General: This is a chronically ill-looking, malnourished, frail, 52-year-old male, looking older than his age, lying in bed in no acute distress. HEENT: Head is normocephalic and atraumatic. Anicteric sclerae and pale conjunctivae. Mucous membranes moist. Neck supple. No JVD noted. No carotid bruits. No lymphadenopathy. No thyromegaly. Cardiovascular: S1-S2 heard. No murmurs, gallops, or rubs. Regular rate and rhythm. Respiratory: Clear bilaterally to auscultation. No work of breathing or using accessory muscles. Abdomen is soft, nontender to palpation. Bowel sounds present. No organomegaly. Extremities covered by wound VAC and dressing. Neurologic: The patient is very sleepy but answers to verbal stimuli. Moves 4 extremities. LABORATORY DATA: None from today. ASSESSMENT AND PLAN: 1. Bilateral lower extremity ulceration and infection with bone exposure. The patient has been here 20 days in the hospital and, apparently, he is not improving as we expected. Dr. Schmidt from Infectious Disease and Dr. Valle from general surgery is following this patient as well. He has received and 17 days of antibiotics; in this case, vancomycin and cefepime. We will follow recommendations from Dr. Schmidt for the length of treatment for this patient. I do not think those lesions in the left leg with exposure of bone and muscles will heal. The patient has refused many times amputation, which I think is the best option for him. At this point, the patient will be taken to the OR tomorrow and we will check with oncology social work when this patient can go to LTAC. 2. Non ST-segment elevation myocardial infarction with patient known to have congestive heart failure and ejection fraction of 20%-25% in telemetry. Nursing informed me that this patient is still having some episodes of nonsustained ventricular tachycardia. The patient already informed about this time of arrhythmia. It is very common in patients with this low ejection fraction and, because of this chronic infection, he is not a good candidate for a defibrillator. Patient acknowledged understanding last week. He is not complaining of any chest pain. 3. Diabetes mellitus, type 2. continue with treatment in these cases. 4. Protein calorie malnutrition. Patient is on a special diet and also Ensure. 5. CODE STATUS. DNR LEVEL 2. cc: Alverto Elias MD
[2017-03-17] MEDS: ULTRAM PO SCH (16:34)
[2017-03-17] MEDS: LOVENOX SUBQ SCH (16:34)
[2017-03-17] MEDS: SANTYL OINT TOP SCH (16:36)
[2017-03-17 17:10] LABS: MANUAL DIFF NEEDED? NO
[2017-03-17 17:14] LABS: BASO% 0.4 % (0.0-0.8); EOS# 0.15 X1000 (0.0-0.7); EOS% 1.2 % (0.0-10.0); HEMATOCRIT 31.9 % (42.0-52.0); IMM GRAN# 0.06 X1000 (0.0-0.04); IMM GRAN% 0.5 % (0.0-0.5); LYMPH# 0.99 X1000 (1.2-3.4); LYMPH% 7.8 % (20.5-51.1); MCH 26.8 PG (27-31); MCHC 31.3 g/dL (33-37); MCV 85.5 FL (81-99); MONO# 1.11 X1000 (0.11-0.59); MONO% 8.8 % (1.7-9.3); MPV 8.9 FL (7.4-10.4); NEUT% 81.3 % (42.2-75.2); PLT 361 X1000 (130-400); RBC 3.73 XMIL (4.7-6.1)
--- NOTE | 2017-03-17 17:33 | Diag Imaging Result Document ---
PROCEDURE NAME: CHEST-1 VIEW - 03/17/2017 PORTABLE CHEST: COMPARISON: 03/02/2017. FINDINGS: There are moderate sized bilateral pleural effusions with bibasilar atelectasis and/or infiltrates. The vasculature is distended. The heart is prominent. Interval placement of a right sided PICC line. The tip overlies the distal superior vena cava. IMPRESSION: Worsening effusions with pulmonary edema and basilar atelectasis and/or infiltrates.
[2017-03-17] MEDS: NICODERM PATCH TD SCH (17:44)
[2017-03-17 17:49] LABS: AGAP 10; BUN 19 mg/dL (8-22); CALCIUM 8.6 mg/dL (8.8-10.2); CHLORIDE 96 mmol/L (98-107); COSMO 268; POTASSIUM 3.9 mmol/L (3.5-5.1); SODIUM 133 mmol/L (136-145); TCO2 27 mmol/L (25-35)
[2017-03-17] MEDS: DULCOLAX PR SCH (20:52)
[2017-03-18] MEDS: CAPOTEN PO SCH ×3 (00:17→16:33)
[2017-03-18] MEDS: DILAUDID IV PRN ×4 (03:12→22:22)
[2017-03-18] MEDS: MAXIPIME 2 GM/NS 2 GM/100 ML IVPB IV SCH ×2 (05:11→18:02)
[2017-03-18] MEDS: HUMALOG SUBQ SCH ×4 (06:11→22:22)
[2017-03-18] MEDS: APRESOLINE PO SCH ×3 (09:26→16:35)
[2017-03-18] MEDS: ASPIRIN PO SCH (09:27)
[2017-03-18] MEDS: COLACE PO SCH ×2 (09:27→20:27)
[2017-03-18] MEDS: ISORDIL PO SCH ×3 (09:27→16:34)
[2017-03-18] MEDS: LASIX IV SCH ×2 (09:27→20:26)
[2017-03-18] MEDS: MIRALAX PO SCH ×2 (09:28→23:00)
[2017-03-18] MEDS: SANTYL OINT TOP SCH (09:29)
[2017-03-18] MEDS: ULTRAM PO SCH (09:29)
--- NOTE | 2017-03-18 10:03 | PROGRESS NOTE ---
DATE: 03/18/2017 SUBJECTIVE: No pain. Of note, he tolerated his VAC change yesterday. OBJECTIVE: Vital Signs: Temperature is 97.5, pulse 116, blood pressure 127/84. General: He is alert, in no acute distress. Dressings were in place in bilateral legs. He is up on the bedside chair today. LABS: This morning the labs were reviewed. He had a creatinine 0.7 yesterday evening. White count 12, hematocrit 31. ASSESSMENT/PLAN: A 52-year-old male with necrotic wounds bilateral legs, status post debridement. He has undergone VAC changes. There has been some demarcation of some tissue, most significantly the periosteum of the tibia and also some skin and soft tissue demarcation posteriorly that needs further debridement on his right leg. The left leg is granulating well with healthy granulating muscle at the bed of the wound. He is nearing ready for long-term acute care disposition. Will plan to debride his right leg today. He was unable to tolerate this at bedside yesterday given the sensation, so we will need to get the bulk of this done today so we can maintain this as an outpatient. Discussed risks, benefits and alternatives with the patient, and he consents. We will go to the operating room today for excisional debridement of right lower extremity and plan to replace his wound VAC. cc: Junior Valle MD
[2017-03-18] MEDS: LOVENOX SUBQ SCH (12:08)
[2017-03-18] MEDS: NORCO-5 PO PRN ×2 (14:26→20:26)
--- NOTE | 2017-03-18 15:50 | PROGRESS NOTE ---
DATE: 03/18/2017 PRESENT ILLNESS: The patient is status post debridement of severely infected legs with osteomyelitis. MEDICATIONS: This is day 20 of treatment with a combination of vancomycin and cefepime. PHYSICAL EXAMINATION: Vital Signs: Temperature is 99, pulse 121, respiration is 14, blood pressure 125/82. General: The patient looks chronically ill and somewhat malnourished. Lungs: Clear to auscultation. Thorax: Increased AP diameter of the chest. Cardiovascular: Regular heart rate. Extremities: Patient has a PICC in the right arm. The site is not swollen or red. Both legs have been debrided. The VAC is present on both legs. LAB AND X-RAY: The patient's blood gases show a pH of 7.48, PO2 of 76, pCO2 of 38. CBC shows a white count of 12,630, hemoglobin 10, and platelet count 361,000. Patient's creatinine is 0.7. GFR is greater than 60. Chest x-ray shows worse pulmonary edema with effusion and bibasilar atelectasis and/or pneumonia. ASSESSMENT AND PLAN: The patient has bilateral osteomyelitis. The plan is to continue with his current antibiotics. Future placement of the patient is as of yet to be decided. COMORBIDITIES: Include peripheral vascular disease, diabetes mellitus, and cigarette smoking. cc: Johnnie Schmidt MD
--- NOTE | 2017-03-18 16:05 | PROGRESS NOTE ---
DATE: 03/18/2017 SUBJECTIVE: Patient is definitely more alert and awake and requests his home medications to be put back because he is hurting tolerably. OBJECTIVE: Vital Signs: Temperature 99.0 degrees, heart rate 121, blood pressure 125/82, O2 saturation 96% on room air. General Examination: This is a chronically ill-looking, very malnourished, and frail, 52-year-old male lying in bed, in no acute distress. Looking older than his age. HEENT: Head is normocephalic, atraumatic. Anicteric sclerae and pale conjunctivae. Mucous membranes moist. Neck: Supple. No JVD noted. No carotid bruits. No lymphadenopathy. No thyromegaly. Cardiovascular: S1, S2 heard. No murmurs, gallops, or rubs. Regular rate and rhythm. Respiratory: Clear bilaterally to auscultation. No work of breathing or using accessory muscles. Abdomen: Soft, nontender to palpation. Bowel sounds present. No organomegaly. Extremities: Covered by wound VAC and dressing. Neurological: Patient is more alert and awake. Apparently moves 4 extremities. LABORATORY DATA: None from today. ASSESSMENT AND PLAN: 1. Bilateral lower extremity ulceration and infection with bone exposure. The patient has been here for 21 days. Unfortunately he is not improving as we were expecting. Dr. Schmidt from infectious disease is following this patient as well as Dr. Valle from general surgery. We really appreciate help. The patient has had a change of the wound VAC today as per Dr. Valle. Dr. Schmidt is helping us in the management of the antibiotics and he has been on vancomycin and cefepime for 18 days. We will follow recommendations. As we mentioned before, he keeps refusing what is, according to the surgeon, the best option for him which is amputation. We will continue with the same management. 2. Fng-[id number] elevation myocardial infarction. The patient also has congestive heart failure with an ejection fraction of 20 to 25%. On telemetry, as we mentioned before, he has many episodes of nonsustained ventricular tachycardia. Patient was already informed about this condition and considering his low ejection fraction and this recent ppe-EI-rlxonoy elevation, he may have a bad arrhythmia at any time, so patient has been informed about this condition. 3. Diabetes mellitus type 2. We will continue with the same management, in this case sliding scale insulin. 4. Protein-calorie malnutrition. Patient on a special diet and also Ensure but he is still malnourished. 5. Code status. DNR level 2. 6. Physical deconditioning. Patient is definitely very weak. Unfortunately his insurance will not cover the LTAC that this patient needs so he will definitely be here in the hospital for few weeks, until we will get placement for him. We will continue with the same management. cc: Alverto Elias MD
[2017-03-18] MEDS: VANCOMYCIN 1,400 MG in NS 250 ML IV SCH (16:27)
[2017-03-18] MEDS: NICODERM PATCH TD SCH (16:34)
[2017-03-18] MEDS: DULCOLAX PR SCH (22:59)
[2017-03-19] MEDS: NORCO-5 PO PRN ×4 (02:14→20:23)
[2017-03-19] MEDS: CAPOTEN PO SCH ×3 (02:15→16:07)
[2017-03-19] MEDS: DILAUDID IV PRN ×4 (05:13→23:18)
[2017-03-19] MEDS: MAXIPIME 2 GM/NS 2 GM/100 ML IVPB IV SCH ×2 (05:22→16:08)
[2017-03-19 06:58] LABS: MANUAL DIFF NEEDED? NO
[2017-03-19 07:00] LABS: BASO% 0.4 % (0.0-0.8); EOS# 0.05 X1000 (0.0-0.7); EOS% 0.6 % (0.0-10.0); HEMATOCRIT 31.1 % (42.0-52.0); HEMOGLOBIN 9.7 g/dL (14.0-18.0); IMM GRAN# 0.06 X1000 (0.0-0.04); IMM GRAN% 0.7 % (0.0-0.5); LYMPH# 1.01 X1000 (1.2-3.4); LYMPH% 11.8 % (20.5-51.1); MCHC 31.2 g/dL (33-37); MCV 86.6 FL (81-99); MONO# 1.02 X1000 (0.11-0.59); MONO% 11.9 % (1.7-9.3); MPV 9.1 FL (7.4-10.4); NEUT% 74.6 % (42.2-75.2); PLT 343 X1000 (130-400); RBC 3.59 XMIL (4.7-6.1)
[2017-03-19 07:27] LABS: AGAP 10; BUN 21 mg/dL (8-22); CHLORIDE 98 mmol/L (98-107); COSMO 272; POTASSIUM 4.2 mmol/L (3.5-5.1); SODIUM 133 mmol/L (136-145); TCO2 25 mmol/L (25-35)
[2017-03-19] MEDS: ISORDIL PO SCH ×3 (08:36→16:07)
[2017-03-19] MEDS: COLACE PO SCH ×2 (08:36→20:20)
[2017-03-19] MEDS: LASIX IV SCH ×2 (08:37→20:20)
[2017-03-19] MEDS: ASPIRIN PO SCH (08:37)
[2017-03-19] MEDS: VANCOMYCIN 1,400 MG in NS 250 ML IV SCH (08:37)
[2017-03-19] MEDS: MIRALAX PO SCH ×2 (08:37→20:21)
[2017-03-19] MEDS: APRESOLINE PO SCH ×3 (08:38→16:07)
--- NOTE | 2017-03-19 10:30 | PROGRESS NOTE ---
DATE: 03/19/2017 SUBJECTIVE: No events. He refused surgery yesterday, stating he wanted to eat and was frustrated with how along the operating room was taking. OBJECTIVE: No fevers. No tachycardia. Wound VAC in place in bilateral lower extremities. ASSESSMENT/PLAN: A 52-year-old male with severe necrotic wounds to bilateral legs status post debridement. He needs re-debridement of some demarcated tissue posteriorly and of the tibia. Discussed importance of this. This is not really for source control, but to facilitate ongoing healing, and he will not tolerate this at bedside due to sensitivity of wound. I have one scheduled for tomorrow. Will make him nothing by mouth tonight and plan for debridement of the right lower extremity. Left leg is granulating well. I think it will be nearing ready for skin graft over the next week or two. cc: Junior Valle MD
[2017-03-19] MEDS: HUMALOG SUBQ SCH ×4 (11:54→20:27)
[2017-03-19] MEDS: LOVENOX SUBQ SCH (14:17)
[2017-03-19] MEDS: SANTYL OINT TOP SCH (16:06)
[2017-03-19] MEDS: NICODERM PATCH TD SCH (16:08)
[2017-03-19] MEDS: DULCOLAX PR SCH (20:21)
[2017-03-20] MEDS: CAPOTEN PO SCH ×2 (00:28→13:11)
[2017-03-20] MEDS: VANCOMYCIN 1,400 MG in NS 250 ML IV SCH (02:17)
[2017-03-20] MEDS: MAXIPIME 2 GM/NS 2 GM/100 ML IVPB IV SCH (04:02)
[2017-03-20] MEDS: DILAUDID IV PRN ×2 (05:02→13:04)
[2017-03-20] MEDS: HUMALOG SUBQ SCH ×2 (06:16→13:12)
[2017-03-20 07:23] LABS: MANUAL DIFF NEEDED? NO
[2017-03-20 07:39] LABS: BASO% 0.4 % (0.0-0.8); EOS# 0.23 X1000 (0.0-0.7); EOS% 3.1 % (0.0-10.0); HEMOGLOBIN 9.7 g/dL (14.0-18.0); IMM GRAN# 0.07 X1000 (0.0-0.04); IMM GRAN% 0.9 % (0.0-0.5); LYMPH# 1.05 X1000 (1.2-3.4); LYMPH% 13.9 % (20.5-51.1); MCHC 31.3 g/dL (33-37); MCV 86.4 FL (81-99); MONO% 11.9 % (1.7-9.3); MPV 9.1 FL (7.4-10.4); NEUT% 69.8 % (42.2-75.2); PLT 212 X1000 (130-400); RBC 3.59 XMIL (4.7-6.1)
[2017-03-20] MEDS: NORCO-5 PO PRN (07:41)
[2017-03-20 07:47] LABS: AGAP 11; BUN 18 mg/dL (8-22); CALCIUM 8.6 mg/dL (8.8-10.2); CHLORIDE 100 mmol/L (98-107); COSMO 275; POTASSIUM 3.8 mmol/L (3.5-5.1); SODIUM 136 mmol/L (136-145); TCO2 25 mmol/L (25-35)
[2017-03-20] MEDS ORDERED: DIPRIVAN 1% ONE (11:03)
[2017-03-20] MEDS ORDERED: DILAUDID ONE ×2 (11:09→11:36)
[2017-03-20] MEDS: DILAUDID ONE ×4 (11:10→11:43)
[2017-03-20] MEDS ORDERED: LR 1,000 ML ONE (11:31)
[2017-03-20] MEDS ORDERED: ANESTHESIA PB SET 88 IN 5742 ONE (11:31)
[2017-03-20] MEDS ORDERED: STERILE WATER INJ. ONE (11:31)
[2017-03-20] MEDS ORDERED: XYLOCAINE-MPF 2% ONE (11:31)
[2017-03-20] MEDS ORDERED: NEO-SYNEPHRINE ONE (11:31)
[2017-03-20] MEDS ORDERED: EXTENSION SET 32 IN 4522 ONE (11:31)
--- NOTE | 2017-03-20 12:21 | DISCHARGE SUMMARY ---
ADMISSION DATE: 02/25/2017 DISCHARGE DATE: 03/19/2017 PERTINENT PROCEDURES: 1. Echocardiogram showed aortic valve sclerosis without stenosis. Trace aortic regurgitation. Mild mitral regurgitation. Mild tricuspid regurgitation with moderate pulmonary hypertension. LVH with estimated EF of 20-25%. 2. Arterial study of bilateral legs likely distal PVD on the right side originating probably at the level of the popliteal distally, suspected the patient's TBI on #1 right- side is falsely elevated pressure. no waveforms noted at the level of the toe. Given the patient's ulcer, vascular intervention may need assisting with healing. Suspected of probable insufficient flow to also healing of the wounds in this study. 3. Excisional debridement of right lower extremity wound to the level including the periosteum of the tibia including muscle and fascia, excisional debridement of the left posterior calf wound down to and including muscle and fascia, excisional debridement of the left lateral ankle down to the level of the tendon and debridement of a left dorsal foot wound to the level of subcutaneous tissue performed by Dr. Calvin Valle. 4. Aorta with runoff CTA showed rather severe vascular disease bilaterally left greater than right. Extensive tissue loss of the right lower extremity with exposed bone of both the tibia and distal fibula. It is greater than expected due to patent arteries visible. There may be a combination of micro and macrovascular disease. 5. Chest CT showed cardiomegaly and bilateral pleural effusions. Severe coronary artery disease. DISCHARGE DIAGNOSES: 1. Bilateral lower extremity ulceration and infection with bone exposure. The patient is status post wound debridement by Dr. Calvin Valle with wound VAC on bilateral extremities. The patient has been accepted at LTAC. 2. Non STEMI. The patient has had many episodes of nonsustained ventricular tachycardia. I felt it was secondary to the patient's CHF with EF of 20-25% and recent non STEMI. He was monitored on telemetry followed by cardiology. 3. Diabetes mellitus type 2. Continue with insulin. 4. Protein calorie malnutrition. Continue diabetic diet with Ensure's. 5. Code status is DNR level 2. 6. Physical deconditioning. The patient remains to be very weak. The patient will be going to LTAC to continue to receive IV antibiotics where he can still get rehab and then hopefully go either to a rehab facility and/or long-term placement. CONSULTATIONS: 1. Dr. Calvin Valle with general surgery. 2. Dr. Kapoor with cardiology. 3. Dr. Johnnie Schmidt with Infectious Disease. 4. Brooke Mckeon with Palliative Care. HOSPITAL COURSE: Briefly, Mr. Bronson is a 52-year-old male admitted on 02/25/2017 with a past medical history of diabetes mellitus, congestive heart failure, obstructive peripheral artery disease, and nicotine dependence who reported to the ED with complaints of bilateral lower extremity ulcerations and edema that became progressively worse. Prior to this admission, he was followed in the wound clinic by Dr. Valle. On this admission, Dr. Valle performed lower extremity debridement bilaterally. The patient has wound vac as well as has Dr. Johnnie Schmidt on board for IV antibiotics. Despite multiple antibiotics, his white count has remained high. Amputation has been discussed ad nauseam, however the patient has refused. Since his admission, he did sustain a non ST-segment elevation ND. Cardiology was following with the patient. Cardiac workup revealed severe coronary artery disease. EF is 20-25%. He has been noted to have some nonsustained ventricular tachycardia. However, he is not a candidate for any intervention due to his active infection. DNR level 2 was then placed after speaking with palliative care. The patient has spent several days waiting on LTAC bed. He is appropriate and has been accepted to LTAC in [place]. Vital signs at the time of his discharge, temperature is 97.9 degrees, heart rate 119, respirations 20, blood pressure 130/85, and O2 is 98% on room air. DISCHARGE DIET: Diabetic with Glucerna shakes. DISCHARGE MEDICATIONS: 1. Aspirin 325 mg p.o. daily. 2. Dulcolax 10 mg p.o. at bedtime. 3. Captopril 12.5 mg p.o. q.8. 4. Maxipime 2 g IV q.12h. 5. Colace 100 mg p.o. b.i.d. 6. Lovenox 40 mg subcutaneous q. 24 hours. 7. Lasix 40 mg IV b.i.d. 8. Apresoline 10 mg p.o. t.i.d. 9. [place] 5/325 1 each p.o. q.6 hours. 10. Isordil 10 mg p.o. t.i.d. 11. Ativan 0.5 mg IV q.8 hours p.r.n. 12. NicoDerm patch 7 mg q. 24 hours. 13. MiraLAX 17 g p.o. b.i.d. p.r.n. 14. Vancomycin 1400 mg IV q.18 hours. FOLLOW-UP: Mr. Bronson is being transferred to LTAC where he will continue to receive IV antibiotics through his PICC line as well as wound VAC care to both his lower extremities. TIME SPENT: Discharge time was greater than 45 minutes. Dictated by JOSEE Smalls for Alverto Elias MD cc: Alverto Elias MD MTDD
[2017-03-20 12:40] VITALS: BP 147/87
[2017-03-20] MEDS: LOVENOX SUBQ SCH (13:12)
[2017-03-20] MEDS: ASPIRIN PO SCH (13:13)
[2017-03-20] MEDS: APRESOLINE PO SCH ×2 (13:13→13:14)
[2017-03-20] MEDS: ISORDIL PO SCH ×2 (13:13)
[2017-03-20] MEDS: COLACE PO SCH (13:13)
[2017-03-20] MEDS: SANTYL OINT TOP SCH (13:14)
[2017-03-20] MEDS: MIRALAX PO SCH (13:14)
[2017-03-20] MEDS: LASIX IV SCH (13:14)
--- NOTE | 2017-03-20 14:17 | OPERATIVE NOTE ---
PROCEDURE DATE: 03/20/2017 PREOPERATIVE DIAGNOSIS: Necrotic wounds of right lower extremity. POSTOPERATIVE DIAGNOSIS: Necrotic wounds of right lower extremity. PROCEDURES PERFORMED: 1. Excisional debridement down to and including tendon and periosteum of bone and muscle of a 38 x 30 cm wound of the right lower extremity. 2. Osteotomies of the tibia and lateral malleolus of the fibula. COMPLICATIONS: None. ESTIMATED BLOOD LOSS: 20 mL. SPECIMENS: Excised necrotic tissue from the right lower extremity. ANESTHESIA: General. INDICATION: A 52-year-old male who presented several weeks ago with necrotic wounds to the bilateral lower extremities. These were excised. He has been undergoing wound VAC placements. Plans for him to discharge to skilled nurse facility. He has had demarcation tissue and needs further debridement for facilitation of wound healing. OPERATIVE FINDINGS: There is overall healthy bleeding tissue throughout the wound bed. There are some areas at the skin edges with some necrosis. There is desiccation necrosis of the fascia but had healthy underlying muscle underneath this, and this was both laterally and posteriorly. OPERATIVE NOTE: The risks, benefits, alternatives were discussed with the patient, and he consented to the procedure. He was seen in the preoperative area and surgery to be performed was confirmed. Surgical site was marked. He was taken to operating room. General anesthesia was induced. He is on scheduled antibiotics. Right lower extremity dressing was removed and prepped Betadine solution and draped in usual fashion. After time-out was performed, we all agreed. We excised all the necrotic tissue using 10 blade scalpel and scissors back to healthy bleeding tissue. The wound encompassed 38 x 30 cm. There is exposed tendon, muscle in the bed of the wound. There is exposed anterior tibia that had dry desiccated periosteum that was black overlying bone. We used a pneumatic bone rasp and debrided this back to calcaneal bone and then, to facilitate wound healing and to stimulate bleeding from the bone, we performed multiple bur holes in the medial and lateral tibia. We also did this to the lateral malleolus of the fibula. There was bleeding from the marrow noted in all these areas. We did this far enough apart to not cause structural weakening of the bone, but he is non-weight bearing. After this, we irrigated the wound, confirmed hemostasis, and applied a saline Kerlix dressing with a loose AMY wrap. We also at the conclusion of the case removed his wound VAC from the left lower extremity and placed a gauze dressing as he plans to go to LTAC today where they will replace his wound VAC. He was awakened and transferred to PACU in good condition. Counts correct x2. cc: Junior Valle MD MTDD
--- NOTE | 2017-03-20 17:26 | PROGRESS NOTE ---
DATE: 03/20/2017 SUBJECTIVE: He was seen in the preoperative area this morning. No complaints. Ready for surgery. OBJECTIVE: No fevers overnight. Persistent low-grade tachycardia. Blood pressure had been fine. Dressings in place in his right lower extremity. Wound VAC is on the left. Reviewed his labs, white count 7, hematocrit is 31, creatinine is normal at 0.7, glucose 140. ASSESSMENT AND PLAN: This is a 52-year-old male with wounds on bilateral lower extremities. He has made arrangements to go to an LTAC for ongoing recovery. I have recommended debridement of these wounds. The patient himself cancelled the procedure 2 days ago and we will plan to go today to debride some demarcated tissue here. Also will plan to debride from the bone back to bleeding tissue to facilitate healing here. He will place wet-to-dry dressings on his wounds and he will have his wound VACs placed at the LTAC when he gets there. Aimee, our wound nurse, has arranged this. He is going with IV antibiotics and I can see him back in [place] in the next 1-2 weeks to follow his wounds as an outpatient and make plans for tissue coverage in the future. Otherwise I think he is stable from a surgical standpoint to discharge to an LTAC facility for ongoing wound care, IV antibiotics and rehabilitation. cc: Junior Valle MD
== END 2017-03-20 13:59 ==
LOC: SUATTDRO 12:58 → DIRADM 12:58 → 4N 16:00 → ICU 02-26 17:15 → 3N 03-01 12:31
PROVIDERS: ATTEND Internal Medicine